=== PATIENT | male | born 1960 | race Two or more races ===

== ENCOUNTER 2024-08-16 10:43 | Outpatient (RCR) | payer OTHER, SELFPAY ==
[2024-07-30 13:41] LABS: Collection Type, Urine Voided; RBC,Urine 0 /hpf (0-3); Squamous Epithelial Cell,Urine 0 /hpf (0-5)
[2024-07-30 13:47] LABS: Basophils % (Auto) 0 % (0-2.5); Eosinophils # (Auto) 0.1 Thou/mm3 (0.0-0.5); Eosinophils % (Auto) 1 % (0-10); Hematocrit 36.3 % (41.0-53.0); Hemoglobin 12.6 g/dL (13.5-16.0); Immature Granulocytes % (Auto) 0 % (0-0); Immature Granulocytes Auto 0.02 Thou/mm3 (0.00-0.00); Lymphocytes # (Auto) 2.3 Thou/mm3 (1.0-4.8); Lymphocytes % (Auto) 27 % (10-50); Mean Corpuscular HGB Conc 34.7 g/dl (31.0-37.0); Mean Corpuscular Volume 86 fL (80-100); Monocytes % (Auto) 11 % (0-12); Neutrophils # (Auto) 5.2 Thou/mm3 (1.8-7.7); Neutrophils % (Auto) 60 % (37-80); Nucleated Red Blood Cell % 0 /100 WBC (0); Platelet Count 229 Thou/mm3 (140-440); RDW Standard Deviation 45.9 fL (35.1-43.9); White Blood Count 8.6 Thou/mm3 (3.8-10.6)
[2024-07-30 14:05] LABS: Carcinoembryonic Antigen 4.6 ng/mL (0.0-5.0)
[2024-07-30 14:09] LABS: Bilirubin,Urine Negative (Negative); Blood,Urine Negative (Negative); Clarity,Urine Turbid (Clear/Hazy); Color,Urine Lt-Yellow (Lt Yel-Yel); Glucose, Urine Negative (Negative); Ketones,Urine Negative (Negative); Leukocyte Esterase,Urine Negative (Negative); Nitrite,Urine Negative (Negative); Protein,Urine Negative (Neg - Trace); Specific Gravity,Urine 1.017 (1.001-1.035); Urobilinogen,Urine Negative mg/dL (0.0-1.0); WBC,Urine 1 /hpf (0-5)
[2024-07-30 14:14] LABS: Alanine Aminotransferase 16 U/L (10-49); Albumin, Serum 4.4 gm/dL (3.4-4.8); Albumin/Globulin Ratio 1.4 (1.2-2.2); Alkaline Phosphatase 79 U/L (46-116); Anion Gap 10 (7-16); Aspartate Amino Transferase 19 U/L (0-34); BUN/Creatinine Ratio 17 Ratio (12-20); Bilirubin,Total 0.6 mg/dL (0.3-1.2); Blood Urea Nitrogen 17 mg/dL (9-23); Calcium 9.6 mg/dL (8.3-10.6); Calcium (Corrected) 9.6 mg/dL (8.5-10.1); Carbon Dioxide 21.5 mMol/L (20.0-31.0); Chloride 106 mMol/L (98-107); Globulin 3.1 gm/dL (2.3-3.5); Glucose 127 mg/dL (74-106); Osmolality,Calculated 277 (275-295); Potassium 3.8 mMol/L (3.4-5.1); Sodium 137 mMol/L (136-145); Total Protein 7.5 gm/dL (5.7-8.2); eGFR > 60 See Note
[2024-07-30 14:16] LABS: Sperm,Urine Present
[2024-08-10 09:33] LABS: Collection Type, Urine Voided
[2024-08-10 09:35] LABS: Basophils % (Auto) 0 % (0-2.5); Eosinophils # (Auto) 0.1 Thou/mm3 (0.0-0.5); Eosinophils % (Auto) 1 % (0-10); Hematocrit 37.1 % (41.0-53.0); Hemoglobin 13.1 g/dL (13.5-16.0); Immature Granulocytes % (Auto) 1 % (0-0); Immature Granulocytes Auto 0.04 Thou/mm3 (0.00-0.00); Lymphocytes # (Auto) 2.3 Thou/mm3 (1.0-4.8); Lymphocytes % (Auto) 41 % (10-50); Mean Corpuscular HGB Conc 35.3 g/dl (31.0-37.0); Mean Corpuscular Hemoglobin 30.6 pg (25.0-35.0); Mean Corpuscular Volume 87 fL (80-100); Monocytes # (Auto) 0.8 Thou/mm3 (0.0-0.8); Monocytes % (Auto) 15 % (0-12); Neutrophils # (Auto) 2.3 Thou/mm3 (1.8-7.7); Neutrophils % (Auto) 41 % (37-80); Nucleated Red Blood Cell % 0 /100 WBC (0); Platelet Count 232 Thou/mm3 (140-440); RDW Standard Deviation 44.9 fL (35.1-43.9); Red Blood Count 4.28 Miln/mm3 (4.50-5.90); White Blood Count 5.6 Thou/mm3 (3.8-10.6)
[2024-08-10 09:37] LABS: Bilirubin,Urine Negative (Negative); Blood,Urine Negative (Negative); Clarity,Urine Clear (Clear/Hazy); Color,Urine Lt-Yellow (Lt Yel-Yel); Culture Indicated,Urine Not Indicated; Glucose, Urine Negative (Negative); Ketones,Urine Negative (Negative); Leukocyte Esterase,Urine Negative (Negative); Nitrite,Urine Negative (Negative); PH,Urine 5.5 (5.0-7.0); Protein,Urine Negative (Neg - Trace); RBC,Urine < 1 /hpf (0-3); Squamous Epithelial Cell,Urine < 1 /hpf (0-5); Urobilinogen,Urine Negative mg/dL (0.0-1.0); WBC,Urine 1 /hpf (0-5)
[2024-08-10 09:54] LABS: Alanine Aminotransferase 14 U/L (10-49); Albumin, Serum 4.5 gm/dL (3.4-4.8); Albumin/Globulin Ratio 1.5 (1.2-2.2); Alkaline Phosphatase 61 U/L (46-116); Anion Gap 7 (7-16); Aspartate Amino Transferase 21 U/L (0-34); BUN/Creatinine Ratio 14 Ratio (12-20); Bilirubin,Total 0.8 mg/dL (0.3-1.2); Blood Urea Nitrogen 13 mg/dL (9-23); Calcium 9.2 mg/dL (8.3-10.6); Calcium (Corrected) 9.2 mg/dL (8.5-10.1); Carbon Dioxide 20.8 mMol/L (20.0-31.0); Chloride 107 mMol/L (98-107); Creatinine (Component) 0.9 mg/dL (0.6-1.3); Glucose 109 mg/dL (74-106); Osmolality,Calculated 271 (275-295); Potassium 3.8 mMol/L (3.4-5.1); Sodium 135 mMol/L (136-145); Total Protein 7.5 gm/dL (5.7-8.2); eGFR > 60 See Note
[2024-08-10 09:56] LABS: Carcinoembryonic Antigen 4.8 ng/mL (0.0-5.0)
[2024-08-14 08:50] LABS: Collection Type, Urine Voided; Squamous Epithelial Cell,Urine 0 /hpf (0-5)
[2024-08-14 08:57] LABS: Bilirubin,Urine Negative (Negative); Blood,Urine Negative (Negative); Clarity,Urine Clear (Clear/Hazy); Color,Urine Lt-Yellow (Lt Yel-Yel); Glucose, Urine Negative (Negative); Ketones,Urine Negative (Negative); Leukocyte Esterase,Urine Negative (Negative); Nitrite,Urine Negative (Negative); PH,Urine 5.5 (5.0-7.0); Protein,Urine Negative (Neg - Trace); RBC,Urine < 1 /hpf (0-3); Urobilinogen,Urine Negative mg/dL (0.0-1.0); WBC,Urine 1 /hpf (0-5)
[2024-08-14 08:58] LABS: Basophils % (Auto) 0 % (0-2.5); Eosinophils # (Auto) 0.1 Thou/mm3 (0.0-0.5); Eosinophils % (Auto) 2 % (0-10); Hemoglobin 11.9 g/dL (13.5-16.0); Immature Granulocytes % (Auto) 0 % (0-0); Immature Granulocytes Auto 0.01 Thou/mm3 (0.00-0.00); Lymphocytes # (Auto) 1.8 Thou/mm3 (1.0-4.8); Lymphocytes % (Auto) 40 % (10-50); Mean Corpuscular Hemoglobin 30.4 pg (25.0-35.0); Mean Corpuscular Volume 87 fL (80-100); Monocytes # (Auto) 0.8 Thou/mm3 (0.0-0.8); Monocytes % (Auto) 18 % (0-12); Neutrophils # (Auto) 1.8 Thou/mm3 (1.8-7.7); Neutrophils % (Auto) 40 % (37-80); Nucleated Red Blood Cell % 0 /100 WBC (0); Platelet Count 148 Thou/mm3 (140-440); RDW Standard Deviation 48.1 fL (35.1-43.9); Red Blood Count 3.92 Miln/mm3 (4.50-5.90); White Blood Count 4.6 Thou/mm3 (3.8-10.6)
[2024-08-14 09:11] LABS: Alanine Aminotransferase 13 U/L (10-49); Albumin, Serum 4.2 gm/dL (3.4-4.8); Albumin/Globulin Ratio 1.6 (1.2-2.2); Alkaline Phosphatase 76 U/L (46-116); Anion Gap 8 (7-16); Aspartate Amino Transferase 18 U/L (0-34); BUN/Creatinine Ratio 16 Ratio (12-20); Bilirubin,Total 0.9 mg/dL (0.3-1.2); Blood Urea Nitrogen 14 mg/dL (9-23); Calcium 9.3 mg/dL (8.3-10.6); Calcium (Corrected) 9.3 mg/dL (8.5-10.1); Chloride 105 mMol/L (98-107); Creatinine (Component) 0.9 mg/dL (0.6-1.3); Globulin 2.7 gm/dL (2.3-3.5); Glucose 119 mg/dL (74-106); Osmolality,Calculated 273 (275-295); Sodium 136 mMol/L (136-145); Total Protein 6.9 gm/dL (5.7-8.2); eGFR > 60 See Note
[2024-08-14 09:23] LABS: Carcinoembryonic Antigen 3.9 ng/mL (0.0-5.0)
== END 2024-08-25 23:59 | disposition home or self-care (01) ==
LOC: SCTC 10:43
PROVIDERS: PCP Family Medicine; Referring Provider Family Medicine; Visit Provider Internal Medicine Hematology & Oncology
DX: Z51.11 Encounter for antineoplastic chemotherapy (principal); C18.7 Malignant neoplasm of sigmoid colon; C78.02 Secondary malignant neoplasm of left lung; C78.01 Secondary malignant neoplasm of right lung; Z90.49 Acquired absence of other specified parts of digestive tract; Z93.3 Colostomy status; K76.89 Other specified diseases of liver; D50.9 Iron deficiency anemia, unspecified
CPT/HCPCS: 36415; 36591; 80053; 81001; 82378; 85025; 96365; 96366; 96367; 96368; 96375; 96411; 96413; 96415; 96416; 96417; 99212; A4216; J0640; J1642; J2469; J2916; J2997; J7040; J9190; J9263; Q5126; A9270; G0463

== ENCOUNTER 2024-09-25 07:14 | Outpatient (RCR) | payer OTHER, SELFPAY ==
[2024-08-27 16:30] LABS: Collection Type, Urine Voided; Squamous Epithelial Cell,Urine 0 /hpf (0-5)
[2024-08-27 16:32] LABS: Basophils % (Auto) 0 % (0-2.5); Eosinophils # (Auto) 0.1 Thou/mm3 (0.0-0.5); Eosinophils % (Auto) 1 % (0-10); Hematocrit 34.2 % (41.0-53.0); Immature Granulocytes % (Auto) 0 % (0-0); Immature Granulocytes Auto 0.01 Thou/mm3 (0.00-0.00); Lymphocytes # (Auto) 2.2 Thou/mm3 (1.0-4.8); Lymphocytes % (Auto) 41 % (10-50); Mean Corpuscular HGB Conc 35.1 g/dl (31.0-37.0); Mean Corpuscular Hemoglobin 31.4 pg (25.0-35.0); Mean Corpuscular Volume 90 fL (80-100); Monocytes # (Auto) 0.7 Thou/mm3 (0.0-0.8); Monocytes % (Auto) 13 % (0-12); Neutrophils # (Auto) 2.4 Thou/mm3 (1.8-7.7); Neutrophils % (Auto) 44 % (37-80); Nucleated Red Blood Cell % 0 /100 WBC (0); Platelet Count 188 Thou/mm3 (140-440); RDW Standard Deviation 49.8 fL (35.1-43.9); Red Blood Count 3.82 Miln/mm3 (4.50-5.90); White Blood Count 5.4 Thou/mm3 (3.8-10.6)
[2024-08-27 16:45] LABS: Bilirubin,Urine Negative (Negative); Blood,Urine Negative (Negative); Clarity,Urine Clear (Clear/Hazy); Color,Urine Lt-Yellow (Lt Yel-Yel); Glucose, Urine Negative (Negative); Ketones,Urine Negative (Negative); Leukocyte Esterase,Urine Negative (Negative); Nitrite,Urine Negative (Negative); PH,Urine 5.5 (5.0-7.0); Protein,Urine Negative (Neg - Trace); RBC,Urine < 1 /hpf (0-3); Specific Gravity,Urine 1.016 (1.001-1.035); Urobilinogen,Urine Negative mg/dL (0.0-1.0); WBC,Urine < 1 /hpf (0-5)
[2024-08-27 16:59] LABS: Alanine Aminotransferase 10 U/L (10-49); Albumin, Serum 4.5 gm/dL (3.4-4.8); Albumin/Globulin Ratio 1.6 (1.2-2.2); Alkaline Phosphatase 68 U/L (46-116); Anion Gap 12 (7-16); Aspartate Amino Transferase 20 U/L (0-34); BUN/Creatinine Ratio 18 Ratio (12-20); Bilirubin,Total 0.9 mg/dL (0.3-1.2); Blood Urea Nitrogen 21 mg/dL (9-23); Calcium 9.5 mg/dL (8.3-10.6); Calcium (Corrected) 9.5 mg/dL (8.5-10.1); Carbon Dioxide 21.7 mMol/L (20.0-31.0); Carcinoembryonic Antigen 2.5 ng/mL (0.0-5.0); Chloride 103 mMol/L (98-107); Creatinine (Component) 1.2 mg/dL (0.6-1.3); Globulin 2.8 gm/dL (2.3-3.5); Glucose 94 mg/dL (74-106); Osmolality,Calculated 276 (275-295); Potassium 3.8 mMol/L (3.4-5.1); Sodium 137 mMol/L (136-145); Total Protein 7.3 gm/dL (5.7-8.2); eGFR > 60 See Note
[2024-09-10 13:26] LABS: Collection Type, Urine Voided; RBC,Urine 0 /hpf (0-3); Squamous Epithelial Cell,Urine 0 /hpf (0-5)
[2024-09-10 13:32] LABS: Basophils % (Auto) 0 % (0-2.5); Eosinophils # (Auto) 0.1 Thou/mm3 (0.0-0.5); Eosinophils % (Auto) 1 % (0-10); Hematocrit 35.3 % (41.0-53.0); Hemoglobin 12.5 g/dL (13.5-16.0); Immature Granulocytes % (Auto) 0 % (0-0); Immature Granulocytes Auto 0.02 Thou/mm3 (0.00-0.00); Lymphocytes # (Auto) 1.9 Thou/mm3 (1.0-4.8); Lymphocytes % (Auto) 36 % (10-50); Mean Corpuscular HGB Conc 35.4 g/dl (31.0-37.0); Mean Corpuscular Hemoglobin 32.1 pg (25.0-35.0); Mean Corpuscular Volume 91 fL (80-100); Monocytes # (Auto) 0.7 Thou/mm3 (0.0-0.8); Monocytes % (Auto) 14 % (0-12); Neutrophils # (Auto) 2.5 Thou/mm3 (1.8-7.7); Neutrophils % (Auto) 48 % (37-80); Nucleated Red Blood Cell % 0 /100 WBC (0); Platelet Count 164 Thou/mm3 (140-440); RDW Standard Deviation 51.8 fL (35.1-43.9); White Blood Count 5.2 Thou/mm3 (3.8-10.6)
[2024-09-10 13:48] LABS: Alanine Aminotransferase 18 U/L (10-49); Albumin, Serum 4.2 gm/dL (3.4-4.8); Albumin/Globulin Ratio 1.4 (1.2-2.2); Alkaline Phosphatase 71 U/L (46-116); Anion Gap 11 (7-16); Aspartate Amino Transferase 23 U/L (0-34); BUN/Creatinine Ratio 15 Ratio (12-20); Bilirubin,Total 0.8 mg/dL (0.3-1.2); Blood Urea Nitrogen 15 mg/dL (9-23); Calcium 9.9 mg/dL (8.3-10.6); Calcium (Corrected) 9.9 mg/dL (8.5-10.1); Carbon Dioxide 21.9 mMol/L (20.0-31.0); Chloride 107 mMol/L (98-107); Glucose 108 mg/dL (74-106); Osmolality,Calculated 281 (275-295); Potassium 3.6 mMol/L (3.4-5.1); Sodium 140 mMol/L (136-145); Total Protein 7.2 gm/dL (5.7-8.2); eGFR > 60 See Note
[2024-09-10 13:50] LABS: Carcinoembryonic Antigen 2.3 ng/mL (0.0-5.0)
[2024-09-10 13:55] LABS: Bilirubin,Urine Negative (Negative); Blood,Urine Negative (Negative); Clarity,Urine Clear (Clear/Hazy); Color,Urine Lt-Yellow (Lt Yel-Yel); Glucose, Urine Negative (Negative); Ketones,Urine Negative (Negative); Leukocyte Esterase,Urine Negative (Negative); Nitrite,Urine Negative (Negative); PH,Urine 5.5 (5.0-7.0); Protein,Urine Negative (Neg - Trace); Specific Gravity,Urine 1.012 (1.001-1.035); Urobilinogen,Urine Negative mg/dL (0.0-1.0); WBC,Urine < 1 /hpf (0-5)
[2024-09-24 08:47] LABS: Collection Type, Urine Voided; RBC,Urine 0 /hpf (0-3); Squamous Epithelial Cell,Urine 0 /hpf (0-5)
[2024-09-24 09:08] LABS: Basophils % (Auto) 0 % (0-2.5); Eosinophils # (Auto) 0.1 Thou/mm3 (0.0-0.5); Eosinophils % (Auto) 2 % (0-10); Hemoglobin 13.2 g/dL (13.5-16.0); Immature Granulocytes % (Auto) 0 % (0-0); Immature Granulocytes Auto 0.01 Thou/mm3 (0.00-0.00); Lymphocytes # (Auto) 1.6 Thou/mm3 (1.0-4.8); Lymphocytes % (Auto) 38 % (10-50); Mean Corpuscular HGB Conc 35.7 g/dl (31.0-37.0); Mean Corpuscular Hemoglobin 32.5 pg (25.0-35.0); Mean Corpuscular Volume 91 fL (80-100); Monocytes # (Auto) 0.6 Thou/mm3 (0.0-0.8); Monocytes % (Auto) 14 % (0-12); Neutrophils # (Auto) 1.9 Thou/mm3 (1.8-7.7); Neutrophils % (Auto) 46 % (37-80); Nucleated Red Blood Cell % 0 /100 WBC (0); Platelet Count 208 Thou/mm3 (140-440); RDW Standard Deviation 51.6 fL (35.1-43.9); Red Blood Count 4.06 Miln/mm3 (4.50-5.90); White Blood Count 4.1 Thou/mm3 (3.8-10.6)
[2024-09-24 09:15] LABS: Carcinoembryonic Antigen 1.7 ng/mL (0.0-5.0)
[2024-09-24 09:24] LABS: Alanine Aminotransferase 16 U/L (10-49); Albumin, Serum 4.6 gm/dL (3.4-4.8); Albumin/Globulin Ratio 1.6 (1.2-2.2); Alkaline Phosphatase 64 U/L (46-116); Anion Gap 10 (7-16); Aspartate Amino Transferase 22 U/L (0-34); BUN/Creatinine Ratio 12 Ratio (12-20); Bilirubin,Total 0.9 mg/dL (0.3-1.2); Blood Urea Nitrogen 12 mg/dL (9-23); Calcium 9.7 mg/dL (8.3-10.6); Calcium (Corrected) 9.7 mg/dL (8.5-10.1); Carbon Dioxide 24.5 mMol/L (20.0-31.0); Chloride 105 mMol/L (98-107); Globulin 2.9 gm/dL (2.3-3.5); Glucose 139 mg/dL (74-106); Osmolality,Calculated 279 (275-295); Sodium 139 mMol/L (136-145); Total Protein 7.5 gm/dL (5.7-8.2); eGFR > 60 See Note
[2024-09-24 09:25] LABS: Bilirubin,Urine Negative (Negative); Blood,Urine Negative (Negative); Clarity,Urine Clear (Clear/Hazy); Color,Urine Lt-Yellow (Lt Yel-Yel); Culture Indicated,Urine Not Indicated; Glucose, Urine Negative (Negative); Ketones,Urine Negative (Negative); Leukocyte Esterase,Urine Negative (Negative); Nitrite,Urine Negative (Negative); PH,Urine 5.5 (5.0-7.0); Protein,Urine Negative (Neg - Trace); Specific Gravity,Urine 1.011 (1.001-1.035); Urobilinogen,Urine Negative mg/dL (0.0-1.0); WBC,Urine < 1 /hpf (0-5)
== END 2024-09-25 23:59 | disposition home or self-care (01) ==
LOC: SCTC 07:14
PROVIDERS: PCP Family Medicine; Referring Provider Family Medicine; Visit Provider Internal Medicine Hematology & Oncology
DX: Z51.11 Encounter for antineoplastic chemotherapy (principal); C19 Malignant neoplasm of rectosigmoid junction; C78.02 Secondary malignant neoplasm of left lung; C78.01 Secondary malignant neoplasm of right lung; D50.9 Iron deficiency anemia, unspecified; Z90.49 Acquired absence of other specified parts of digestive tract
CPT/HCPCS: 80053; 81001; 82378; 85025; 96365; 96366; 96367; 96368; 96375; 96411; 96413; 96415; 96416; 96417; A4216; J0640; J1642; J2469; J2916; J2919; J2997; J3490; J7060; J9190; J9263; Q5126; A9270

== ENCOUNTER 2024-10-19 07:19 | Outpatient (RCR) | payer OTHER, SELFPAY ==
[2024-10-17 07:52] LABS: Collection Type, Urine Voided; Squamous Epithelial Cell,Urine 0 /hpf (0-5)
[2024-10-17 08:10] LABS: Basophils % (Auto) 0 % (0-2.5); Eosinophils # (Auto) 0.1 Thou/mm3 (0.0-0.5); Eosinophils % (Auto) 2 % (0-10); Hematocrit 35.6 % (41.0-53.0); Hemoglobin 12.9 g/dL (13.5-16.0); Immature Granulocytes % (Auto) 1 % (0-0); Immature Granulocytes Auto 0.06 Thou/mm3 (0.00-0.00); Lymphocytes # (Auto) 1.9 Thou/mm3 (1.0-4.8); Lymphocytes % (Auto) 36 % (10-50); Mean Corpuscular HGB Conc 36.2 g/dl (31.0-37.0); Mean Corpuscular Hemoglobin 33.2 pg (25.0-35.0); Mean Corpuscular Volume 92 fL (80-100); Monocytes # (Auto) 0.8 Thou/mm3 (0.0-0.8); Monocytes % (Auto) 14 % (0-12); Neutrophils # (Auto) 2.5 Thou/mm3 (1.8-7.7); Neutrophils % (Auto) 47 % (37-80); Nucleated Red Blood Cell % 0 /100 WBC (0); Platelet Count 257 Thou/mm3 (140-440); RDW Standard Deviation 46.1 fL (35.1-43.9); Red Blood Count 3.88 Miln/mm3 (4.50-5.90); White Blood Count 5.3 Thou/mm3 (3.8-10.6)
[2024-10-17 08:28] LABS: Alanine Aminotransferase 12 U/L (10-49); Albumin, Serum 4.4 gm/dL (3.4-4.8); Albumin/Globulin Ratio 1.5 (1.2-2.2); Alkaline Phosphatase 81 U/L (46-116); Anion Gap 10 (7-16); Aspartate Amino Transferase 13 U/L (0-34); BUN/Creatinine Ratio 18 Ratio (12-20); Bilirubin,Total 0.6 mg/dL (0.3-1.2); Blood Urea Nitrogen 14 mg/dL (9-23); Calcium 9.9 mg/dL (8.3-10.6); Calcium (Corrected) 9.9 mg/dL (8.5-10.1); Carbon Dioxide 22.8 mMol/L (20.0-31.0); Chloride 104 mMol/L (98-107); Creatinine (Component) 0.8 mg/dL (0.6-1.3); Glucose 143 mg/dL (74-106); Osmolality,Calculated 276 (275-295); Potassium 3.8 mMol/L (3.4-5.1); Sodium 137 mMol/L (136-145); Total Protein 7.4 gm/dL (5.7-8.2); eGFR > 60 See Note
[2024-10-17 08:29] LABS: Bilirubin,Urine Negative (Negative); Blood,Urine Negative (Negative); Clarity,Urine Clear (Clear/Hazy); Color,Urine Lt-Yellow (Lt Yel-Yel); Glucose, Urine Negative (Negative); Ketones,Urine Negative (Negative); Leukocyte Esterase,Urine Negative (Negative); Nitrite,Urine Negative (Negative); PH,Urine 5.5 (5.0-7.0); Protein,Urine Negative (Neg - Trace); RBC,Urine 1 /hpf (0-3); Specific Gravity,Urine 1.017 (1.001-1.035); Urobilinogen,Urine Negative mg/dL (0.0-1.0); WBC,Urine 1 /hpf (0-5)
[2024-10-17 08:49] LABS: Carcinoembryonic Antigen 1.5 ng/mL (0.0-5.0)
--- NOTE | 2024-10-17 10:59 | CTCFLWUP_ITS ---
Patient: CARLOS STODDARD : 1960 Page 2 of 2 FOLLOW UP NOTE DATE OF SERVICE: 10/16/2024 NAME: CARLOS STODDARD ACCOUNT: [id number] : 1960 AGE: 64 INTERVAL HISTORY: Patient was having dizziness and had a fall at home. Patient says that he took [place] and did not eat .. Patient was also not drinking enough fluids. Patient's was at work. Patient called 911 and was evaluated at the hospital. Patient is now doing better and want to restart his treatment. 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 MMR proficient Liver lesions CT chest with contrast (03/05/2024) showed multiple small pulmonary nodules suspicious f or metastatic disease. Too small to biopsy. S/p sigmoid colectomy and end colostomy (03/01/2024). S/p colonoscopy biopsy on 02/13/2024 DATE OF DIAGNOSIS: 02/12/2022 STAGE/TNM: Stage III invasive adenocarcinoma of the rectosigmoid TREATMENT HISTORY: Care?Plan Start?Date Cycle Day Intent mFOLFOX-6?+?Bevacizumab?5?mg/kg 04/17/2024 1 14 Palliative FERRlecit?he 04/16/2024 1 7 Palliative HISTORY OF PRESENT ILLNESS: Carlos Stoddard is a 63-year-old ENG speaking male with history of intermittent constipatio n as well as pain in the suprapubic region for the last 8 to 12 weeks and occasional rectal bleeding for the last 8-12 I will see him back in the clinic in 2 weeks. 01/17/2024: Mr. Stoddard went to emergency room because of persistent abdominal pain. A CT scan of the a bdomen and pelvis with IV contrast was done01/17/2024: Hemoglobin 13.4, MCV 86, WBC 12.4, ANC 8.9, figueroa telets 483,000. 02/10/2024: CEA 29.4. 02/13/2024: Colonoscopy showed rectosigmoid mass which on biopsy proven as an invasive adenocarcinoma well-differentiated. OTHER MEDICAL HISTORY/CONDITIONS: Invasive adenocarcinoma redtosigmoid colon - 02/13/24 HPylori positive - 02/13/24 Esophogeal ulcers Gastritis BPH Alcohol abuse Left knee surgery - 30 yrs ago Tonsillectomy - age 7 ?Clone Other Med Hx? FAMILY HISTORY: Sibling: Brother - Kaposi's Sarcoma-dx age 22; Brother- liver - dx 67 ?Clone Family Hx? 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 Tobacco?Use:?Denies ETOH Use:?Quit 3 months ago - 12pk / daily and 5th whiskey x 40 yrs Drug?Note:?Denies Social?History?Note:?Lives?with? ?Clone Social Hx? MEDICATIONS: 1. docusate sodium - 100 mg 1 tab As directed 2. hydrocodone-acetaminophen - 5-325 mg 1 tab every 6 hours for 30 Days 3. losartan - 25 mg 1 tab Daily 4. omeprazole - 40 mg 1 Capsule Daily 5. tamsulosin - 0.4 mg 1 Capsule Daily?Palabra Meds? Medications Last Reconciled by Aleyda Clark MD on 10/16/2024 ALLERGIES: Morphine sulfate REVIEW OF SYSTEMS: A complete 14-point review of systems was performed and is negative except as noted in interval histo ry. PHYSICAL EXAMINATION: VITAL SIGNS: Temperature?97.3, B/P?156/101, Oxygen?Saturation?97% Weight?173?lbs (Change?since? 5:?-1.2?lbs) PAIN: 0 - No pain ECOG Performance Status: 0 - Asymptomatic and fully active GENERAL APPEARANCE: Appears well, in no apparent distress, appropriately interactive. HEENT: Normocephalic, no temporal wasting, normal conjunctiva, no scleral icterus, normal hearing, li ps without lesions, neck normal range of motion. CARDIOVASCULAR: Not assessed. PULMONARY: Normal respiratory effort, no respiratory distress or use of accessory muscles, speaking i n full sentences, no tachypnea. EXTREMITIES: No pedal edema or cyanosis. SKIN: Normal skin appearance. NEUROLOGIC: Alert and oriented x4. PSHYCHIATRIC: Appropriate affect, mood normal, behavior normal, intact thought and speech. LABORATORY DATA: I have personally reviewed and interpreted each of the patient?s relevant lab tests, abnormal finding s are below: Date 10/17/24 ??GLUCOSE,RANDOM?(mg/dL) 143?H ??BLOOD?UREA?NITROGEN?(mg/dL) 14 ??CREATININE?(mg/dL) 0.80 ??SODIUM?(mmol/L) 137 ??POTASSIUM?(mmol/L) 3.8 ??CHLORIDE?(mmol/L) 104 ??CrCl?(CandG)?(ml/min) 102.91 ??AST/SGOT?(Unit/L) 13 ??ALT/SGPT?(Unit/L) 12 ??ALKALINE?PHOSPHATASE?(Unit/L) 81 ??BILIRUBIN,?TOTAL?(mg/dL) 0.6 ??PROTEIN?TOTAL?(gm/dl) 7.4 ??ALBUMIN,?SERUM?(gm/dl) 4.4 ??GLOBULIN?(gm/dl) 3.0 ??ALBUMIN/GLOBULIN?RATIO 1.5 ??CALCIUM,?SERUM?(mg/dL) 9.9 ??CALCIUM?SERUM?(CORRECTED)?(mg/dL) 9.9 ASSESSMENT/PLAN: #1 most likely stage IV, MMR proficient, sigmoid colon adenocarcinoma with pulmonary metastatic dise ase. MMR proficient. S/p sigmoid colectomy and end colostomy. CT scan showed multiple pulmonary nodules. Nodules are very small so cannot be biopsied Patient is be ing treated with presumed stage IV cancer and bevacizumab was added for maximum benefit July 2024 CT scan concerning for liver lesion. Lesion is very small I will repeat scan in 2 months c CEA has b een downtrending now less than 5 olonoscopy was done on 02/13/2024 Continue FOLFOX with [facility] CT scan in 2 months #2 iron deficiency anemia Hemoglobin stable will check labs again to see if patient is stil l deficient Patient's CEA and other labs reviewed Patient have 2 remaining chemotherapies will continue Will follow-up on the CT scan which is already ordered CBC CMP CEA RETURN TO CLINIC: 4 weeks with scan results BILLING AND COMPLIANCE: I reviewed external records from providers outside my specialty as summarized above. I spent a total of 50 minutes on this patient?s care on the day of their visit excluding time spent related to any bi lled procedures. This time includes time spent with the patient as well as time spent documenting in the medical record, reviewing patients records and tests, obtaining history, placing orders, communi cating with other healthcare professionals, counseling the patient, family or caregiver, and/or care coordination for the diagnoses above. Electronically Signed by: Von Boss MD T: 10:57 AM CC: PCP: Matthew Dave Referring: Matthew Dave This document was completed utilizing speech recognition software. Grammatical errors, random word in sertions, pronoun errors, and incomplete sentences are an occasional consequence of this system due t o software limitations, ambient noise, and hardware issues. Any formal questions or concerns about th e content, text or information contained within the body of this dictation should be directly address ed to the provider for clarification.
== END 2024-10-26 23:59 | disposition home or self-care (01) ==
LOC: SCTC 07:19
PROVIDERS: PCP Family Medicine; Referring Provider Family Medicine; Visit Provider Internal Medicine Hematology & Oncology
DX: Z51.11 Encounter for antineoplastic chemotherapy (principal); C18.7 Malignant neoplasm of sigmoid colon; C78.00 Secondary malignant neoplasm of unspecified lung; Z90.49 Acquired absence of other specified parts of digestive tract
CPT/HCPCS: 80053; 81001; 82378; 85025; 96365; 96366; 96367; 96368; 96375; 96411; 96413; 96415; 96416; 96417; 99212; A4216; J0640; J1642; J2469; J2916; J2919; J3490; J7040; J7050; J9190; J9263; Q5126; A9270; G0463

== ENCOUNTER → 2024-10-22 | Outpatient (CLI) | payer OTHER, SELFPAY ==
--- NOTE | 2024-10-22 14:00 | XR_ITS ---
Examination: CT chest with intravenous contrast CT abdomen with intravenous contrast CT pelvis with intravenous contrast 2-D coronal and sagittal reconstructions Time of exam: October 22, 2024 1538 hours Comparison August 07, 2024 INDICATIONS: Diagnosis malignant neoplasm of the colon, restaging, multiple bilateral pulmonary nodules, the largest 8 mm in the left upper lobe, 20 x 22 mm anterior right lobe liver lesion on CT examination August 07, 2024 CTDI: vol (mGy) : 7.39 DLP: (mGycm): 569 Technique: Multiple axial images of the chest, abdomen and pelvis with intravenous contrast, 3.0 mm slice thickness. Images obtained post intravenous injection Isovue 370 60 cc. 2-D sagittal and coronal reconstructions. Low dose protocols were performed. One or more of the following dose reduction techniques were used; automated exposure control, adjustment of the mA and/or KV according to patient size, use of iterative reconstruction technique. Findings: Multiple left thyroid nodules again noted No thoracic aortic aneurysm dilatation Pulmonary artery segments are not enlarged No paratracheal tracheobronchial or bronchopulmonary adenopathy Stable bilateral pulmonary nodules No interval pneumonia or pulmonary edema Stable 29 mm right lobe liver lesion Mildly distended gallbladder Spleen is not enlarged No pancreatic or adrenal mass No hydronephrosis Left ileostomy No bowel obstruction No abdominal or pelvic lymphadenopathy Urinary bladder intact Transverse prostate dimension 4.3 cm Advanced degenerative disc disease L5-S1 IMPRESSION: Multiple left thyroid nodules No significant change in bilateral subcentimeter pulmonary nodules No interval pneumonia or pulmonary edema Stable 29 mm right lobe liver lesion, no new liver lesions
== END | disposition home or self-care (01) ==
PROVIDERS: PCP Family Medicine; Referring Provider Internal Medicine Hematology & Oncology; Visit Provider Internal Medicine Hematology & Oncology
DX: E04.2 Nontoxic multinodular goiter (principal); R91.8 Other nonspecific abnormal finding of lung field; K76.9 Liver disease, unspecified
CPT/HCPCS: 71260; 74177; A4649; J0694; J1100; J1885; J2250; J2405; J2704; J3010; J3490; Q9967

== ENCOUNTER → 2024-10-30 | Outpatient (CLI) | payer OTHER, SELFPAY ==
[2024-10-30 09:45] LABS: Glucose Estimated Average 114 mg/dL (80-131); Hemoglobin A1C 5.6 % Hgb (4.8-6.0)
== END | disposition home or self-care (01) ==
LOC: COPL 08:47
PROVIDERS: PCP Family Medicine; Referring Provider Family Medicine; Visit Provider Family Medicine
DX: E11.65 Type 2 diabetes mellitus with hyperglycemia (principal)
CPT/HCPCS: 36415; 83036

== ENCOUNTER 2024-11-19 08:49 | Outpatient (RCR) | payer OTHER, MEDICARE, SELFPAY ==
[2024-10-31 07:39] LABS: Collection Type, Urine Voided; Squamous Epithelial Cell,Urine 0 /hpf (0-5)
[2024-10-31 07:44] LABS: Basophils % (Auto) 0 % (0-2.5); Bilirubin,Urine Negative (Negative); Blood,Urine Negative (Negative); Clarity,Urine Clear (Clear/Hazy); Color,Urine Lt-Yellow (Lt Yel-Yel); Eosinophils # (Auto) 0.1 Thou/mm3 (0.0-0.5); Eosinophils % (Auto) 1 % (0-10); Glucose, Urine Negative (Negative); Hemoglobin 12.8 g/dL (13.5-16.0); Immature Granulocytes % (Auto) 0 % (0-0); Immature Granulocytes Auto 0.02 Thou/mm3 (0.00-0.00); Ketones,Urine Negative (Negative); Leukocyte Esterase,Urine Negative (Negative); Lymphocytes % (Auto) 38 % (10-50); Mean Corpuscular HGB Conc 35.6 g/dl (31.0-37.0); Mean Corpuscular Hemoglobin 32.8 pg (25.0-35.0); Mean Corpuscular Volume 92 fL (80-100); Monocytes # (Auto) 0.9 Thou/mm3 (0.0-0.8); Monocytes % (Auto) 17 % (0-12); Neutrophils # (Auto) 2.3 Thou/mm3 (1.8-7.7); Neutrophils % (Auto) 43 % (37-80); Nitrite,Urine Negative (Negative); Nucleated Red Blood Cell % 0 /100 WBC (0); Platelet Count 194 Thou/mm3 (140-440); Protein,Urine Negative (Neg - Trace); RBC,Urine < 1 /hpf (0-3); RDW Standard Deviation 45.8 fL (35.1-43.9); Specific Gravity,Urine 1.019 (1.001-1.035); Urobilinogen,Urine Negative mg/dL (0.0-1.0); WBC,Urine < 1 /hpf (0-5); White Blood Count 5.4 Thou/mm3 (3.8-10.6)
[2024-10-31 08:03] LABS: Alanine Aminotransferase 15 U/L (10-49); Albumin, Serum 4.2 gm/dL (3.4-4.8); Albumin/Globulin Ratio 1.4 (1.2-2.2); Alkaline Phosphatase 76 U/L (46-116); Anion Gap 9 (7-16); Aspartate Amino Transferase 14 U/L (0-34); BUN/Creatinine Ratio 17 Ratio (12-20); Bilirubin,Total 0.9 mg/dL (0.3-1.2); Blood Urea Nitrogen 15 mg/dL (9-23); Calcium 9.1 mg/dL (8.3-10.6); Calcium (Corrected) 9.1 mg/dL (8.5-10.1); Chloride 108 mMol/L (98-107); Creatinine (Component) 0.9 mg/dL (0.6-1.3); Globulin 2.9 gm/dL (2.3-3.5); Glucose 115 mg/dL (74-106); Osmolality,Calculated 277 (275-295); Potassium 3.9 mMol/L (3.4-5.1); Sodium 138 mMol/L (136-145); Total Protein 7.1 gm/dL (5.7-8.2); eGFR > 60 See Note
[2024-10-31 15:55] LABS: Carcinoembryonic Antigen 1.1 ng/mL (0.0-5.0)
--- NOTE | 2024-11-25 15:38 | CTCFLWUP_ITS ---
Patient: CARLOS STODDARD : 1960 Page 4 of 5 FOLLOW UP NOTE DATE OF SERVICE: 11/08/2024 NAME: CARLOS STODDARD ACCOUNT: [id number] : 1960 AGE: 64 INTERVAL HISTORY: Patient was having dizziness and had a fall at home. Patient says that he took [place] and did not eat.. Patient was also not drinking enough fluids. Patient's was at work. Patient called 911 and was evaluated at the hospital. Patient is now doing better and want to restart his treatment. ONCOLOGY HISTORY:?[facility] Hx? 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 MMR proficient Liver lesions CT chest with contrast (03/05/2024) showed multiple small pulmonary nodules suspicious for metastatic disease. Too small to biopsy. S/p sigmoid colectomy and end colostomy (03/01/2024). S/p colonoscopy biopsy on 02/13/2024 DATE OF DIAGNOSIS: 02/12/2022 STAGE/TNM: Stage III invasive adenocarcinoma of the rectosigmoid TREATMENT HISTORY: Care?Plan Start?Date Cycle Day Intent mFOLFOX-6?+?Bevacizumab?5?mg/kg 04/17/2024 1 14 Palliative FERRlecit?he 04/16/2024 1 7 Palliative HISTORY OF PRESENT ILLNESS: Carlos Stoddard is a 64-year-old ENG speaking male with history of intermittent constipation as well as pain in the suprapubic region for the last 8 to 12 weeks and occasional rectal bleeding for the last 8-12 I will see him back in the clinic in 2 weeks. 01/17/2024: Mr. Stoddard went to emergency room because of persistent abdominal pain. A CT scan of the abdomen and pelvis with IV contrast was done01/17/2024: Hemoglobin 13.4, MCV 86, WBC 12.4, ANC 8.9, platelets 483,000. 02/10/2024: CEA 29.4. 02/13/2024: Colonoscopy showed rectosigmoid mass which on biopsy proven as an invasive adenocarcinoma well-differentiated. OTHER MEDICAL HISTORY/CONDITIONS: Invasive adenocarcinoma redtosigmoid colon - 02/13/24 HPylori positive - 02/13/24 Esophogeal ulcers Gastritis BPH Alcohol abuse Left knee surgery - 30 yrs ago Tonsillectomy - age 7 ?Clone Other Med Hx? FAMILY HISTORY: Sibling: Brother - Kaposi's Sarcoma-dx age 22; Brother- liver - dx 67 ?Clone Family Hx? 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 Tobacco?Use:?Denies ETOH Use:?Quit 3 months ago - 12pk / daily and 5th whiskey x 40 yrs Drug?Note:?Denies Social?History?Note:?Lives?with? ?[facility]one Social Hx? MEDICATIONS: 1. docusate sodium - 100 mg 1 tab As directed 2. hydrocodone-acetaminophen - 5-325 mg 1 tab every 6 hours for 30 Days 3. losartan - 25 mg 1 tab Daily 4. omeprazole - 40 mg 1 Capsule Daily 5. ondansetron - 8 mg 1 tab 1 tab every 8 hrs as needed for nausea 6. tamsulosin - 0.4 mg 1 Capsule Daily?Palabra Meds? Medications Last Reconciled by Sheila Beck MA on 11/08/2024 ALLERGIES: Morphine sulfate REVIEW OF SYSTEMS: A complete 14-point review of systems was performed and is negative except as noted in interval history. PHYSICAL EXAMINATION:?[facility] PE? VITAL SIGNS: Temperature?98, B/P?176/120, Oxygen?Saturation?98% Weight?171.5?lbs (Change?since?11/02/24:?-0.5?lbs) PAIN: 0 - No pain GENERAL APPEARANCE: Appears well, in no apparent distress, appropriately interactive. HEENT: Normocephalic, no temporal wasting, normal conjunctiva, no scleral icterus, normal hearing, lips without lesions, neck normal range of motion. CARDIOVASCULAR: Not assessed. PULMONARY: Normal respiratory effort, no respiratory distress or use of accessory muscles, speaking in full sentences, no tachypnea. EXTREMITIES: No pedal edema or cyanosis. SKIN: Normal skin appearance. NEUROLOGIC: Alert and oriented x4. PSHYCHIATRIC: Appropriate affect, mood normal, behavior normal, intact thought and speech. LABORATORY DATA: I have personally reviewed and interpreted each of the patient?s relevant lab tests, abnormal findings are below: Date 10/31/24 ??GLUCOSE,RANDOM?(mg/dL) 115?H ??BLOOD?UREA?NITROGEN?(mg/dL) 15 ??CREATININE?(mg/dL) 0.90 ??SODIUM?(mmol/L) 138 ??POTASSIUM?(mmol/L) 3.9 ??CHLORIDE?(mmol/L) 108?H ??CrCl?(CandG)?(ml/min) 90.44 ??AST/SGOT?(Unit/L) 14 ??ALT/SGPT?(Unit/L) 15 ??ALKALINE?PHOSPHATASE?(Unit/L) 76 ??BILIRUBIN,?TOTAL?(mg/dL) 0.9 ??PROTEIN?TOTAL?(gm/dl) 7.1 ??ALBUMIN,?SERUM?(gm/dl) 4.2 ??GLOBULIN?(gm/dl) 2.9 ??ALBUMIN/GLOBULIN?RATIO 1.4 ??CALCIUM,?SERUM?(mg/dL) 9.1 ??CALCIUM?SERUM?(CORRECTED)?(mg/dL) 9.1 ASSESSMENT/PLAN:?Kayla Boss Assessment/Plan? #1 most likely stage IV, MMR proficient, sigmoid colon adenocarcinoma with pulmonary metastatic disease. MMR proficient. S/p sigmoid colectomy and end colostomy. CT scan showed multiple pulmonary nodules. Nodules are very small so cannot be biopsied Patient is being treated with presumed stage IV cancer and bevacizumab was added for maximum benefit July 2024 CT scan concerning for liver lesion. Lesion is very small I will repeat scan in 2 months c CEA has been downtrending now less than 5 olonoscopy was done on 02/13/2024 Continue FOLFOX with [facility] CT scan in 2 months #2 iron deficiency anemia Hemoglobin stable will check labs again to see if patient is still deficient Patient's CEA and other labs reviewed Patient have 2 remaining chemotherapies will continue Will follow-up on the CT scan which is already ordered CBC CMP CEA RETURN TO CLINIC: BILLING AND COMPLIANCE: I reviewed external records from providers outside my specialty as summarized above. I spent a total of 50 minutes on this patient?s care on the day of their visit excluding time spent related to any billed procedures. This time includes time spent with the patient as well as time spent documenting in the medical record, reviewing patients records and tests, obtaining history, placing orders, communicating with other healthcare professionals, counseling the patient, family or caregiver, and/or care coordination for the diagnoses above. Electronically Signed by: Von Boss MD T: 3:36 PM CC: PCP: Matthew Dave Referring: Matthew Dave This document was completed utilizing speech recognition software. Grammatical errors, random word insertions, pronoun errors, and incomplete sentences are an occasional consequence of this system due to software limitations, ambient noise, and hardware issues. Any formal questions or concerns about the content, text or information contained within the body of this dictation should be directly addressed to the provider for clarification.
== END 2024-11-23 23:59 | disposition home or self-care (01) ==
LOC: SCTC 08:49
PROVIDERS: PCP Family Medicine; Referring Provider Family Medicine; Visit Provider Internal Medicine Hematology & Oncology
DX: Z51.11 Encounter for antineoplastic chemotherapy (principal); C18.7 Malignant neoplasm of sigmoid colon; C78.00 Secondary malignant neoplasm of unspecified lung; Z90.49 Acquired absence of other specified parts of digestive tract; D50.9 Iron deficiency anemia, unspecified
CPT/HCPCS: 36591; 80053; 81001; 82378; 85025; 96365; 96366; 96367; 96368; 96375; 96411; 96413; 96415; 96416; 96417; 99212; A4216; J0640; J1642; J2469; J2916; J7040; J7050; J7060; J9190; J9263; Q5126; A9270; G0463

== ENCOUNTER 2024-12-11 14:38 | Outpatient (RCR) | payer OTHER, MEDICARE, SELFPAY ==
--- NOTE | 2024-12-12 00:01 | CTCFLWUP_ITS ---
Patient: CARLOS STODDARD : 1960 Page 4 of 5 FOLLOW UP NOTE DATE OF SERVICE: 12/11/2024 NAME: CARLOS STODDARD ACCOUNT: [id number] : 1960 AGE: 64 INTERVAL HISTORY: Patient doing better. And another 10 pounds since the last visit. 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 MMR proficient Liver lesions CT chest with contrast (03/05/2024) showed multiple small pulmonary nodules suspicious for metastatic disease. Too small to biopsy. S/p sigmoid colectomy and end colostomy (03/01/2024). S/p colonoscopy biopsy on 02/13/2024 DATE OF DIAGNOSIS: 02/12/2022. STAGE/TNM: Stage III invasive adenocarcinoma of the rectosigmoid TREATMENT HISTORY: Care?Plan Start?Date Cycle Day Intent mFOLFOX-6?+?Bevacizumab?5?mg/kg 04/17/2024 1 14 Palliative FERRlecit?he 04/16/2024 1 7 Palliative HISTORY OF PRESENT ILLNESS: Carlos Stoddard is a 64-year-old ENG speaking male with history of intermittent constipation as well as pain in the suprapubic region for the last 8 to 12 weeks and occasional rectal bleeding for the last 8-12 I will see him back in the clinic in 2 weeks. 01/17/2024: Mr. Stoddard went to emergency room because of persistent abdominal pain. A CT scan of the abdomen and pelvis with IV contrast was done01/17/2024: Hemoglobin 13.4, MCV 86, WBC 12.4, ANC 8.9, platelets 483,000. 02/10/2024: CEA 29.4. 02/13/2024: Colonoscopy showed rectosigmoid mass which on biopsy proven as an invasive adenocarcinoma well-differentiated. 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 Tobacco?Use:?Denies ETOH Use:?Quit 3 months ago - 12pk / daily and 5th whiskey x 40 yrs Drug?Note:?Denies Social?History?Note:?Lives?with? MEDICATIONS: 1. docusate sodium - 100 mg 1 tab As directed 2. hydrocodone-acetaminophen - 5-325 mg 1 tab every 6 hours for 30 Days 3. losartan - 50 mg 1 tab Daily 4. omeprazole - 40 mg 1 Capsule Daily 5. ondansetron - 8 mg 1 tab 1 tab every 8 hrs as needed for nausea 6. tamsulosin - 0.4 mg 1 Capsule Daily Medications Last Reconciled by Anjali Ross MA on 12/11/2024 ALLERGIES: Morphine sulfate REVIEW OF SYSTEMS: A complete 14-point review of systems was performed and is negative except as noted in interval history. PHYSICAL EXAMINATION: VITAL SIGNS: Temperature?99, B/P?148/96, Oxygen?Saturation?99% Weight?182.4?lbs (Change?since?11/19/24:?7.8?lbs) PAIN: 4 - Moderate pain GENERAL APPEARANCE: Appears well, in no apparent distress, appropriately interactive. HEENT: Normocephalic, no temporal wasting, normal conjunctiva, no scleral icterus, normal hearing, lips without lesions, neck normal range of motion. CARDIOVASCULAR: Not assessed. PULMONARY: Normal respiratory effort, no respiratory distress or use of accessory muscles, speaking in full sentences, no tachypnea. EXTREMITIES: No pedal edema or cyanosis. SKIN: Normal skin appearance. NEUROLOGIC: Alert and oriented x4. PSHYCHIATRIC: Appropriate affect, mood normal, behavior normal, intact thought and speech. LABORATORY DATA: I have personally reviewed and interpreted each of the patient?s relevant lab tests, abnormal findings are below: Date 10/17/24 10/31/24 ??WHITE?BLOOD?COUNT?(Thou/mm3) ? 5.4 ??RED?BLOOD?COUNT?(Miln/mm3) ? 3.90?L ??HEMOGLOBIN?(gm/dl) ? 12.8?L ??HEMATOCRIT?(%) ? 36.0?L ??PLATELET?COUNT?(Thou/mm3) ? 194 ??NEUTROPHILS?%,?AUTO?(%) ? 43 ??LYMPH?%,?AUTO?(%) ? 38 ??NEUTROPHILS,?AUTO?(Thou/mm3) ? 2.3 ??GLUCOSE,RANDOM?(mg/dL) 143?H 115?H ??BLOOD?UREA?NITROGEN?(mg/dL) 14 15 ??CREATININE?(mg/dL) 0.80 0.90 ??SODIUM?(mmol/L) 137 138 ??POTASSIUM?(mmol/L) 3.8 3.9 ??CHLORIDE?(mmol/L) 104 108?H ??CrCl?(CandG)?(ml/min) 102.91 90.44 ??AST/SGOT?(Unit/L) 13 14 ??ALT/SGPT?(Unit/L) 12 15 ??ALKALINE?PHOSPHATASE?(Unit/L) 81 76 ??BILIRUBIN,?TOTAL?(mg/dL) 0.6 0.9 ??PROTEIN?TOTAL?(gm/dl) 7.4 7.1 ??ALBUMIN,?SERUM?(gm/dl) 4.4 4.2 ??GLOBULIN?(gm/dl) 3.0 2.9 ??ALBUMIN/GLOBULIN?RATIO 1.5 1.4 ??CALCIUM,?SERUM?(mg/dL) 9.9 9.1 ??CALCIUM?SERUM?(CORRECTED)?(mg/dL) 9.9 9.1 ??CEA?(O*)?(ng/ml) ? 1.1 ASSESSMENT/PLAN: #1 most likely stage IV, MMR proficient, sigmoid colon adenocarcinoma with pulmonary metastatic disease. MMR proficient. S/p sigmoid colectomy and end colostomy. CT scan showed multiple pulmonary nodules. Nodules are very small so cannot be biopsied Patient is being treated with presumed stage IV cancer and bevacizumab was added for maximum benefit July 2024 CT scan concerning for liver lesion. Lesion is very small I will repeat scan in 2 months c CEA has been downtrending now less than 5 olonoscopy was done on 02/13/2024 Continue FOLFOX with [facility] CT scan in 2 months #2 iron deficiency anemia Hemoglobin stable will check labs again to see if patient is still deficient Patient's CEA and other labs reviewed Patient have 2 remaining chemotherapies will continue Will follow-up on the CT scan which is already ordered CBC CMP CEA ORDERS: Order # Description [id number] MD Follow Up 2 Months + CEA RETURN TO CLINIC: BILLING AND COMPLIANCE: I reviewed external records from providers outside my specialty as summarized above. I spent a total of 50 minutes on this patient?s care on the day of their visit excluding time spent related to any billed procedures. This time includes time spent with the patient as well as time spent documenting in the medical record, reviewing patients records and tests, obtaining history, placing orders, communicating with other healthcare professionals, counseling the patient, family or caregiver, and/or care coordination for the diagnoses above. Electronically Signed by: Von Boss MD T: 11:59 PM CC: PCP: Matthew Dave Referring: Matthew Dave This document was completed utilizing speech recognition software. Grammatical errors, random word insertions, pronoun errors, and incomplete sentences are an occasional consequence of this system due to software limitations, ambient noise, and hardware issues. Any formal questions or concerns about the content, text or information contained within the body of this dictation should be directly addressed to the provider for clarification.
== END 2024-12-24 23:59 | disposition home or self-care (01) ==
LOC: SCTC 14:38
PROVIDERS: PCP Family Medicine; Referring Provider Family Medicine; Visit Provider Internal Medicine Hematology & Oncology
DX: C18.7 Malignant neoplasm of sigmoid colon (principal); R91.8 Other nonspecific abnormal finding of lung field; D50.9 Iron deficiency anemia, unspecified; Z90.49 Acquired absence of other specified parts of digestive tract
CPT/HCPCS: 99212; G0463

== ENCOUNTER 2025-01-04 13:05 | Day surgery (SDC) | payer OTHER, MEDICARE, SELFPAY ==
[2025-01-04] VITALS (11 sets, daily range): BP systolic 132–163; BP diastolic 95–106; PULSE 94–109; RESP 8–23; TEMP 36.8; O2SAT 93–99; BMI 28.9
[2025-01-04] MEDS: SODIUM CHLORIDE 0.9% 500 ML 500 ML 20 ML IV (14:32)
[2025-01-04] MEDS: DiphenhydrAMINE INJ 50 MG/ML VIAL 25 MG IV (14:39)
[2025-01-04] MEDS: fentaNYL CIT INJ 50 mCg/ML AMP 2ML (ASD USE ONLY) IV (14:53)
[2025-01-04] MEDS: MIDAZOLAM INJ 1 MG/ML VIAL 2 ML (ASD USE ONLY) 2 MG IV (14:53)
== END 2025-01-04 15:46 | disposition home or self-care (01) ==
PROVIDERS: PCP Family Medicine; Referring Provider Specialist; Visit Provider Specialist
PROC: 0DBE8ZX Excision of Large Intestine, Via Natural or Artificial Opening Endoscopic, Diagnostic (ICD-10-PCS; CPT 45380; principal; 2025-01-04 13:15)
PROC: (CPT 43239; 2025-01-04 13:15)
DX: Z12.11 Encounter for screening for malignant neoplasm of colon (principal); Z85.048 Personal history of other malignant neoplasm of rectum, rectosigmoid junction, and anus
CPT/HCPCS: G0105; A4649; J1200; J2250; J3010; J7040

== ENCOUNTER 2025-02-07 10:10 | Outpatient (RCR) | payer OTHER, MEDICARE, SELFPAY ==
--- NOTE | 2025-02-14 14:17 | CTCFLWUP_ITS ---
Patient: CARLOS STODDARD : 1960 Page 5 of 7 FOLLOW UP NOTE DATE OF SERVICE: 02/07/2025 NAME: CARLOS STODDARD ACCOUNT: [id number] : 1960 AGE: 64 INTERVAL HISTORY: Patient doing better. And another 10 pounds since the last visit. Here to discuss nnatera results Jefe, a male with history of cancer, presented with concerns about positive Sadaf test results. His history includes completed chemotherapy (12 sessions ending October), with one session delayed due to heart issues. Recent colonoscopy showed benign polyp, and endoscopy revealed a small stomach ulcer negative for malignancy. Imaging previously identified a 29mm right liver lobe lesion. Patient reports weight loss and muscle weakness. Plan includes PET-CT and liver MRI to locate recurrence, specialist referral to Dr. Aguiar or Evelio, potential chemotherapy resumption, continuing omeprazole for g astritis, and proceeding with scheduled surgery. Chief Complaint Concern about positive Sadaf test result, recurrence of cancer History of Present Illness Mr. Stoddard, a patient with a history of cancer, presents for follow-up after receiving positive Sadaf test results. He reports feeling good overall but expresses concern about the positive result. The patient underwent a colonoscopy with Dr. Casey, which revealed a benign polyp. An endoscopy identified a small ulcer in the stomach, which was biopsied and found to be negative for cancer. Mr. Stoddard has been taking omeprazole and reports no more heartburn, likely attributed to mild gastritis. He completed 12 chemotherapy sessions, with the last one in October. One session was delayed due to heart issues, but all treatments were ultimately completed. Mr. Stoddard notes that he has experienced weight loss and muscle weakness since his last visit. He reports that he lost weight too quickly and has been working on rebuilding his strength. The patient acknowledges that aging has affected his recovery process, and he understands that post-surgery healing will take time and require dietary changes. The patient mentions ongoing issues with his ostomy bag, which fills unpredictably and causes inconvenience. He reports the need for frequent cleaning and suggests that larger bags might be helpful in managing this problem. Medications and Supplements - Omeprazole - Taken for ulcer in the stomach - No more heartburn, likely mild gastritis Review of Systems General: Positive for weight loss. Gastrointestinal: Negative for heartburn. 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 MMR proficient Liver lesions CT chest with contrast (03/05/2024) showed multiple small pulmonary nodules suspicious for metastatic disease. Too small to biopsy. S/p sigmoid colectomy and end colostomy (03/01/2024). S/p colonoscopy biopsy on 02/13/2024 DATE OF DIAGNOSIS: 02/12/2022. STAGE/TNM: Stage III invasive adenocarcinoma of the rectosigmoid TREATMENT HISTORY: Care?Plan Start?Date Cycle Day Intent mFOLFOX-6?+?Bevacizumab?5?mg/kg 04/17/2024 1 14 Palliative FERRlecit?he 04/16/2024 1 7 Palliative HISTORY OF PRESENT ILLNESS: Carlos Stoddard is a 64-year-old ENG speaking male with history of intermittent constipation as well as pain in the suprapubic region for the last 8 to 12 weeks and occasional rectal bleeding for the last 8-12 I will see him back in the clinic in 2 weeks. 01/17/2024: Mr. Stoddard went to emergency room because of persistent abdominal pain. A CT scan of the abdomen and pelvis with IV contrast was done01/17/2024: Hemoglobin 13.4, MCV 86, WBC 12.4, ANC 8.9, platelets 483,000. 02/10/2024: CEA 29.4. 02/13/2024: Colonoscopy showed rectosigmoid mass which on biopsy proven as an invasive adenocarcinoma well-differentiated. 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 Tobacco?Use:?Denies ETOH Use:?Quit 3 months ago - 12pk / daily and 5th whiskey x 40 yrs Drug?Note:?Denies Social?History?Note:?Lives?with? MEDICATIONS: 1. docusate sodium - 100 mg 1 tab As directed 2. hydrocodone-acetaminophen - 5-325 mg 1 tab every 6 hours for 30 Days 3. losartan - 50 mg 1 tab Daily 4. omeprazole - 40 mg 1 Capsule Daily 5. ondansetron - 8 mg 1 tab 1 tab every 8 hrs as needed for nausea 6. tamsulosin - 0.4 mg 1 Capsule Daily Medications Last Reconciled by Aleyda Clark RN on 02/07/2025 ALLERGIES: Morphine sulfate REVIEW OF SYSTEMS: A complete 14-point review of systems was performed and is negative except as noted in interval history. PHYSICAL EXAMINATION: VITAL SIGNS: Temperature?97.9, B/P?150/99, Oxygen?Saturation?96% Weight?184?lbs (Change?since?02/06/25:?-0.4?lbs) PAIN: 2 - Mild pain ECOG Performance Status: 0 - Asymptomatic and fully active GENERAL APPEARANCE: Appears well, in no apparent distress, appropriately interactive. HEENT: Normocephalic, no temporal wasting, normal conjunctiva, no scleral icterus, normal hearing, lips without lesions, neck normal range of motion. CARDIOVASCULAR: Not assessed. PULMONARY: Normal respiratory effort, no respiratory distress or use of accessory muscles, speaking in full sentences, no tachypnea. EXTREMITIES: No pedal edema or cyanosis. SKIN: Normal skin appearance. NEUROLOGIC: Alert and oriented x4. PSHYCHIATRIC: Appropriate affect, mood normal, behavior normal, intact thought and speech. LABORATORY DATA: I have personally reviewed and interpreted each of the patient?s relevant lab tests, abnormal findings are below: Date 02/07/25 02/10/25 ??WHITE?BLOOD?COUNT?(Thou/mm3) 9.4 9.6 ??RED?BLOOD?COUNT?(Miln/mm3) 4.35?L 3.71?L ??HEMOGLOBIN?(gm/dl) 13.9 12.0?L ??HEMATOCRIT?(%) 39.4?L 34.5?L ??PLATELET?COUNT?(Thou/mm3) 198 154 ??NEUTROPHILS?%,?AUTO?(%) 71 75 ??LYMPH?%,?AUTO?(%) 21 15 ??NEUTROPHILS,?AUTO?(Thou/mm3) 6.6 7.2 ??GLUCOSE,RANDOM?(mg/dL) ? 104 ??BLOOD?UREA?NITROGEN?(mg/dL) ? 14 ??CREATININE?(mg/dL) ? 0.90 ??SODIUM?(mmol/L) ? 140 ??POTASSIUM?(mmol/L) ? 4.1 ??CHLORIDE?(mmol/L) ? 106 ??CrCl?(CandG)?(ml/min) ? 95.31 ??ALBUMIN,?SERUM?(gm/dl) ? 4.0 ??CALCIUM,?SERUM?(mg/dL) ? 8.5 ??CALCIUM?SERUM?(CORRECTED)?(mg/dL) ? 8.5 ??MAGNESIUM?(mg/dL) ? 2.0 ASSESSMENT/PLAN: #1 most likely stage IV, MMR proficient, sigmoid colon adenocarcinoma with pulmonary metastatic disease. MMR proficient. S/p sigmoid colectomy and end colostomy. CT scan showed multiple pulmonary nodules. Nodules are very small so cannot be biopsied Jefe, a patient with a history of cancer, presents with concerns about recent positive Sadaf test results and upcoming surgery. Recurrent Cancer Assessment: Patient has a history of cancer with recent positive Sadaf test results, indicating persistent disease. Last chemotherapy was in October. Previous imaging showed a 29mm lesion in the right liver lobe. The patient has completed 12 chemotherapy sessions, with one session delayed due to heart issues. Naterra is positive Plan: - Order PET-CT scan and MRI of the liver to locate cancer recurrence - Refer patient to Dr. Aguiar or Evelio for hepatocolon cancer specialist consultation - Consider chemotherapy initiation based on imaging results - Maintain chemotherapy port for potential future treatments - Schedule follow-up to discuss imaging results and treatment options Gastrointestinal Issues Assessment: Patient underwent recent colonoscopy and endoscopy. A benign polyp was found during colonoscopy. Endoscopy revealed a small ulcer in the stomach, which was biopsied and found to be negative for cancer. Patient has been on omeprazole and reports resolution of heartburn symptoms. The condition is likely mild gastritis. Plan: - Continue omeprazole as prescribed - Monitor for recurrence of gastrointestinal symptoms - Follow up with clothing busheler as needed Upcoming Surgery Assessment: Patient is scheduled for surgery for colostomy reversal The patient expresses concerns about the unpredictable filling of the bag and the need for frequent cleaning. Plan: - Proceed with scheduled surgery - Consider replacing chemotherapy port during surgery if necessary - Educate patient on post-surgical care - RETURN TO CLINIC: 3 weeks BILLING AND COMPLIANCE: I reviewed external records from providers outside my specialty as summarized above. I spent a total of 50 minutes on this patient?s care on the day of their visit excluding time spent related to any billed procedures. This time includes time spent with the patient as well as time spent documenting in the medical record, reviewing patients records and tests, obtaining history, placing orders, communicating with other healthcare professionals, counseling the patient, family or caregiver, and/or care coordination for the diagnoses above. Electronically Signed by: Von Boss MD T: 12:29 AM CC: PCP: Von Boss Referring: oVn Boss This document was completed utilizing speech recognition software. Grammatical errors, random word insertions, pronoun errors, and incomplete sentences are an occasional consequence of this system due to software limitations, ambient noise, and hardware issues. Any formal questions or concerns about the content, text or information contained within the body of this dictation should be directly addressed to the provider for clarification.
== END 2025-02-23 23:59 | disposition home or self-care (01) ==
LOC: SCTC 10:10
PROVIDERS: PCP Family Medicine; Referring Provider Internal Medicine Hematology & Oncology; Visit Provider Internal Medicine Hematology & Oncology
DX: C18.7 Malignant neoplasm of sigmoid colon (principal); K25.9 Gastric ulcer, unspecified as acute or chronic, without hemorrhage or perforation; K76.89 Other specified diseases of liver; K29.70 Gastritis, unspecified, without bleeding; Z71.2 Person consulting for explanation of examination or test findings; Z90.49 Acquired absence of other specified parts of digestive tract; Z93.3 Colostomy status
CPT/HCPCS: 36415; 99212; A4216; J1642; G0463

== ENCOUNTER 2025-02-08 10:46 | Inpatient (IN) | payer OTHER, MEDICARE, SELFPAY ==
[2025-02-06 09:13] VITALS: BMI 31.1
--- NOTE | 2025-02-07 07:00 | EKG_ITS ---
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
[2025-02-07 10:27] LABS: Basophils % (Auto) 0 % (0-2.5); Eosinophils # (Auto) 0.2 Thou/mm3 (0.0-0.5); Eosinophils % (Auto) 2 % (0-10); Hematocrit 39.4 % (41.0-53.0); Hemoglobin 13.9 g/dL (13.5-16.0); Immature Granulocytes % (Auto) 1 % (0-0); Immature Granulocytes Auto 0.05 Thou/mm3 (0.00-0.00); Lymphocytes % (Auto) 21 % (10-50); Mean Corpuscular HGB Conc 35.3 g/dl (31.0-37.0); Mean Corpuscular Volume 91 fL (80-100); Monocytes # (Auto) 0.5 Thou/mm3 (0.0-0.8); Monocytes % (Auto) 6 % (0-12); Neutrophils # (Auto) 6.6 Thou/mm3 (1.8-7.7); Neutrophils % (Auto) 71 % (37-80); Nucleated Red Blood Cell % 0 /100 WBC (0); Platelet Count 198 Thou/mm3 (140-440); Red Blood Count 4.35 Miln/mm3 (4.50-5.90); White Blood Count 9.4 Thou/mm3 (3.8-10.6)
[2025-02-07 10:47] LABS: Alanine Aminotransferase 18 U/L (10-49); Albumin, Serum 4.6 gm/dL (3.4-4.8); Albumin/Globulin Ratio 1.4 (1.2-2.2); Alkaline Phosphatase 64 U/L (46-116); Anion Gap 10 (7-16); Aspartate Amino Transferase 20 U/L (0-34); BUN/Creatinine Ratio 17 Ratio (12-20); Bilirubin,Total 1.1 mg/dL (0.3-1.2); Blood Urea Nitrogen 19 mg/dL (9-23); Carbon Dioxide 25.8 mMol/L (20.0-31.0); Chloride 103 mMol/L (98-107); Creatinine (Component) 1.1 mg/dL (0.6-1.3); Estimated Creatinine Clearance 66.1 mL/min (>60); Globulin 3.3 gm/dL (2.3-3.5); Glucose 113 mg/dL (74-106); Osmolality,Calculated 280 (275-295); Potassium 4.1 mMol/L (3.4-5.1); Sodium 139 mMol/L (136-145); Total Protein 7.9 gm/dL (5.7-8.2); eGFR > 60 See Note
--- NOTE | 2025-02-07 13:53 | SUR.PREOP ---
Pt notified to come in tomorrow at 1030 for surgery.
[2025-02-08] VITALS (16 sets, daily range): BP systolic 121–153; BP diastolic 83–110; PULSE 69–101; RESP 12–20; TEMP 35.6–36.8; O2SAT 94–99; BMI 30.6; BMI 29.5
--- NOTE | 2025-02-08 14:29 | PD.SUROPNT ---
Date of Procedure 02/08/25 Pre Op Diagnosis History of sigmoid cancer status post sigmoid colectomy with end colostomy Post Op Diagnosis History of sigmoid cancer status post sigmoid colectomy with end colostomy Procedure Exploratory laparotomy, significant lysis of adhesions and reversal of colostomy Findings Significant adhesions from previous operations. No evidence of pelvic, peritoneal or omental nodules or any lesions Anesthesia GETA Pathology / specimen Other (Colostomy site, low rectal anastomosis donuts) Estimated Blood Loss 50 Condition Stable Disposition PACU Surgeon Beau Hardwick MD Surgical Staff Operation Date: 02/08/25 12:45 Case Staff Anesthesiologist: Byron Blanco RNnuclear control room operator: Angie Salinas
--- NOTE | 2025-02-08 14:37 | SUR.PHASEI ---
1437: Pt. AAOx4, vitals stable, breathing unlabored, complaint of pain, will give pain medication, dressing to ABD CDI, ABD Binder in place, rivera catheter in place draining clear yellow urine, report received from MD Blanco and Rustam GALVEZ.
[2025-02-08] MEDS: KETOROLAC INJ 30 MG/ML VIAL IVP (14:47)
[2025-02-08] MEDS: KCL 20 mEq/L in D5-1/2NS 20 MEQ/1,000 ML BAG 60 MEQ IV (14:53)
[2025-02-08] MEDS: HYDROmorphone 1 MG/ML PCA SYRINGE 30ML PCA (14:56)
--- NOTE | 2025-02-08 16:05 | PC.NURSE ---
Report received from WEIGHT RECORDERLENNY Orourke.
--- NOTE | 2025-02-08 16:21 | SUR.PHASEI ---
1621: Pt. AAOx4, vitals stable, breathing unlabored, no complaint of pain or nausea, dressing to ABD CDI, no active bleed noted, ABD Binder in place, report given to Chris RN prior to transfer to room 369. Pt. transferred with all personal belongings. Family aware of transfer to room.
[2025-02-08] MEDS: PANTOPRAZOLE INJ 40 MG VIAL IVP (17:40)
[2025-02-08] MEDS: CEFOXITIN 2 GM in SODIUM CHLORIDE 0.9% (Popper) 50 ML IV ×2 (17:40→23:21)
[2025-02-08] MEDS: ACETAMINOPHEN IVPB 1,000 MG/100 ML VIAL 250 MG IV (18:32)
[2025-02-08] MEDS: DOCUSATE SOD 100 MG CAPSULE PO (20:15)
[2025-02-08] MEDS: ASCORBIC ACID 250 MG TABLET 500 MG PO (20:15)
[2025-02-09] VITALS (7 sets, daily range): BP systolic 111–134; BP diastolic 72–92; PULSE 75–96; RESP 16–20; TEMP 36.4–36.6; O2SAT 97–98
[2025-02-09] MEDS: ACETAMINOPHEN IVPB 1,000 MG/100 ML VIAL 250 MG IV ×3 (00:01→11:12)
[2025-02-09] MEDS: CEFOXITIN 2 GM in SODIUM CHLORIDE 0.9% (Popper) 50 ML IV ×3 (05:57→17:02)
[2025-02-09] MEDS: KCL 20 mEq/L in D5-1/2NS 20 MEQ/1,000 ML BAG 60 MEQ IV (07:02)
[2025-02-09] MEDS: TAMSULOSIN HCL 0.4 MG CAPSULE PO (08:06)
[2025-02-09] MEDS: ENOXAPARIN SOD INJ 40 MG/0.4 ML SYRINGE SC (08:06)
[2025-02-09] MEDS: PANTOPRAZOLE INJ 40 MG VIAL IVP (08:06)
[2025-02-09] MEDS: ASCORBIC ACID 250 MG TABLET 500 MG PO ×2 (08:06→20:11)
[2025-02-09] MEDS: ZINC SULFATE 220 MG CAPSULE PO (08:06)
[2025-02-09] MEDS: DOCUSATE SOD 100 MG CAPSULE PO ×2 (08:06→20:12)
[2025-02-09] MEDS: LOSARTAN POTASSIUM 25 MG TABLET 100 MG PO (08:07)
--- NOTE | 2025-02-09 13:05 | ESPR_ITS ---
Documentation for date of: 02/09/25 Subjective Subjective Narrative: Patient is seen and examined. He is complaining of incisional pain, controlled with OPERATOR COMMAND SUPPORT SYSTEMS. He denies nausea or vomiting Exam Vital Signs Temp Pulse Resp BP Pulse Ox O2 Del Method O2 Flow Rate 97.5 F 76 17 117/72 98 Nasal Cannula 3 02/09/25 12:00 02/09/25 12:00 02/09/25 12:00 02/09/25 12:00 02/09/25 12:00 02/09/25 12:00 02/09/25 12:00 Constitutional Constitutional: no acute distress Routine Abdominal Exam Comments: Abdomen is soft and minimally distended. No bowel sounds noted. Incisions with dressing clean, dry and intact Assessment & Plan Assessment Additional comments: Postop day #1 status post exploratory laparotomy, lysis of adhesions and reversal of colostomy Plan Will keep n.p.o. with ice chips today. Continue to use incentive spirometer and increase ambulation. Antibiotics will be discontinued later today. Will remove Farmer catheter tomorrow Procedures Procedures Exploratory laparotomy, significant lysis of adhesions and reversal of colostomy
--- NOTE | 2025-02-09 13:20 | PC.SS ---
SS met with patient regarding his d/c plan. Pt is alert/oriented. Pt was admitted for Exp Lap 20724. Pt confirmed demographic and contact information is correct on facesheet. Pt resides with and son. Pt ambulates independently without assistance or DME. Pt is ok with all ADLs. Patient?s pharmacy of choice is [facility] in [place]. Pt named his , Dayanna Mayberry medical decision maker if he is unable. SS provided verbal options for d/c to home or SNF. Patient?s choice is to return home upon d/c. Pt states he is not diabetic and is not on dialysis. Pt last followed up with PCP on . will provide transportation. D/C plan: Return home Next of Kin: Dayanna Mayberry, , phone# [phone] PCP: Dr. Matthew Dave Address: Correct on facesheet
[2025-02-09] MEDS: HYDROmorphone 1 MG/ML PCA SYRINGE 30ML PCA (23:59)
[2025-02-10] VITALS (7 sets, daily range): BP systolic 116–146; BP diastolic 77–99; PULSE 68–91; RESP 15–23; TEMP 36.4–37.2; O2SAT 95–99
[2025-02-10] MEDS: KCL 20 mEq/L in D5-1/2NS 20 MEQ/1,000 ML BAG 60 MEQ IV ×2 (02:45→20:25)
[2025-02-10 05:43] LABS: Basophils % (Auto) 0 % (0-2.5); Eosinophils # (Auto) 0.1 Thou/mm3 (0.0-0.5); Eosinophils % (Auto) 1 % (0-10); Hematocrit 34.5 % (41.0-53.0); Immature Granulocytes % (Auto) 1 % (0-0); Immature Granulocytes Auto 0.05 Thou/mm3 (0.00-0.00); Lymphocytes # (Auto) 1.5 Thou/mm3 (1.0-4.8); Lymphocytes % (Auto) 15 % (10-50); Mean Corpuscular HGB Conc 34.8 g/dl (31.0-37.0); Mean Corpuscular Hemoglobin 32.3 pg (25.0-35.0); Mean Corpuscular Volume 93 fL (80-100); Monocytes # (Auto) 0.8 Thou/mm3 (0.0-0.8); Monocytes % (Auto) 9 % (0-12); Neutrophils # (Auto) 7.2 Thou/mm3 (1.8-7.7); Neutrophils % (Auto) 75 % (37-80); Nucleated Red Blood Cell % 0 /100 WBC (0); Platelet Count 154 Thou/mm3 (140-440); RDW Standard Deviation 43.4 fL (35.1-43.9); Red Blood Count 3.71 Miln/mm3 (4.50-5.90); White Blood Count 9.6 Thou/mm3 (3.8-10.6)
[2025-02-10 06:29] LABS: Anion Gap 9 (7-16); BUN/Creatinine Ratio 16 Ratio (12-20); Blood Urea Nitrogen 14 mg/dL (9-23); Calcium 8.5 mg/dL (8.3-10.6); Calcium (Corrected) 8.5 mg/dL (8.5-10.1); Carbon Dioxide 25.2 mMol/L (20.0-31.0); Chloride 106 mMol/L (98-107); Creatinine (Component) 0.9 mg/dL (0.6-1.3); Estimated Creatinine Clearance 81.6 mL/min (>60); Glucose 104 mg/dL (74-106); Osmolality,Calculated 279 (275-295); Phosphorous 1.8 mg/dL (2.4-5.1); Potassium 4.1 mMol/L (3.4-5.1); Sodium 140 mMol/L (136-145); eGFR > 60 See Note
[2025-02-10] MEDS: DOCUSATE SOD 100 MG CAPSULE PO ×2 (07:38→20:16)
[2025-02-10] MEDS: ZINC SULFATE 220 MG CAPSULE PO (07:38)
[2025-02-10] MEDS: TAMSULOSIN HCL 0.4 MG CAPSULE PO (07:38)
[2025-02-10] MEDS: LOSARTAN POTASSIUM 25 MG TABLET 100 MG PO (07:39)
[2025-02-10] MEDS: ASCORBIC ACID 250 MG TABLET 500 MG PO ×2 (07:39→20:16)
[2025-02-10] MEDS: PANTOPRAZOLE INJ 40 MG VIAL IVP (07:39)
[2025-02-10] MEDS: ENOXAPARIN SOD INJ 40 MG/0.4 ML SYRINGE SC (07:39)
--- NOTE | 2025-02-10 16:48 | PC.NURSE ---
[id number].
[2025-02-11] VITALS (8 sets, daily range): BP systolic 117–160; BP diastolic 81–105; PULSE 84–113; RESP 14–20; TEMP 36.3–36.8; O2SAT 94–98; BMI 29.4
[2025-02-11] MEDS: HYDROmorphone 1 MG/ML PCA SYRINGE 30ML PCA (00:29)
--- NOTE | 2025-02-11 00:36 | PC.NURSE ---
Wasted 27ml of Dilaudid WEB OPERATIONS ADMINISTRATOR with Maribel GALVEZ.
--- NOTE | 2025-02-11 07:54 | PD.SURPROG ---
Documentation for date of: 02/11/25 Subjective Subjective Narrative: Patient is seen and examined. His pain is improving. He is tolerating clear liquids without nausea or vomiting. He started passing flatus but no bowel movement. He has been voiding without difficulty since his Farmer was removed yesterday Exam Vital Signs Temp Pulse Resp BP Pulse Ox O2 Del Method O2 Flow Rate 97.4 F 86 18 140/97 H 95 Nasal Cannula 3 02/11/25 04:00 02/11/25 04:00 02/11/25 06:23 02/11/25 04:00 02/11/25 04:00 02/11/25 04:00 02/11/25 04:00 Constitutional Constitutional: no acute distress Routine Abdominal Exam Comments: Abdomen is soft and very minimally distended. Incisions with dressings clean, dry and intact. He has bowel sounds Assessment & Plan Assessment Additional comments: Postop day #3 status post exploratory laparotomy lysis of adhesions and reversal of colostomy Plan Will advance to full liquids and Ensure supplements. DC AIRPORT LOCATION MANAGER. Continue to ambulate and use incentive spirometer Procedures Procedures Exploratory laparotomy, significant lysis of adhesions and reversal of colostomy
[2025-02-11] MEDS: LOSARTAN POTASSIUM 25 MG TABLET 100 MG PO (08:59)
[2025-02-11] MEDS: DOCUSATE SOD 100 MG CAPSULE PO ×2 (08:59→20:32)
[2025-02-11] MEDS: ENOXAPARIN SOD INJ 40 MG/0.4 ML SYRINGE SC (08:59)
[2025-02-11] MEDS: PANTOPRAZOLE 40 MG TABLET PO (09:00)
[2025-02-11] MEDS: TAMSULOSIN HCL 0.4 MG CAPSULE PO (09:00)
[2025-02-11] MEDS: ZINC SULFATE 220 MG CAPSULE PO (09:00)
[2025-02-11] MEDS: ASCORBIC ACID 250 MG TABLET 500 MG PO ×2 (09:00→20:32)
[2025-02-11] MEDS: HYDROmorphone INJ 2 MG/ML VIAL 1 MG IVP ×3 (09:28→20:39)
--- NOTE | 2025-02-11 10:22 | PC.SS ---
Follow up note: Advance diet. On IV meds. Pain management. Pt will return home upon dc.
--- NOTE | 2025-02-11 15:09 | PD.ANESPROG ---
Documentation for date of: 02/11/25 POST ANESTHESIA NOTE: Patient had GETA for ex lap colostomy reversal on 02/08/25. I just saw her briefly around 14:45 in 369 and he was alert and calm in bed, NAD, his visitor at bedside, denied any problems from anesthesia. Byron Blanco MD Anesthesia Progress Note Progress Note Most recent Vital Signs: Last Vital Signs Temp 98 F 02/11/25 12:00 Pulse 100 02/11/25 12:00 Resp 17 02/11/25 12:00 BP 122/94 H 02/11/25 12:00 Pulse Ox 96 02/11/25 12:00 O2 Del Method Nasal Cannula 02/11/25 12:00 O2 Flow Rate 3 02/11/25 12:00
[2025-02-11] MEDS: HYDROcodone/APAP 10/325 TAB PO (15:21)
[2025-02-12] VITALS (8 sets, daily range): BP systolic 114–131; BP diastolic 81–93; PULSE 89–100; RESP 18–92; TEMP 36.2–36.7; O2SAT 93–97
[2025-02-12] MEDS: HYDROmorphone INJ 2 MG/ML VIAL 1 MG IVP ×6 (00:54→22:35)
[2025-02-12] MEDS: ENOXAPARIN SOD INJ 40 MG/0.4 ML SYRINGE SC (08:29)
[2025-02-12] MEDS: LOSARTAN POTASSIUM 25 MG TABLET 100 MG PO (08:29)
[2025-02-12] MEDS: ZINC SULFATE 220 MG CAPSULE PO (08:30)
[2025-02-12] MEDS: PANTOPRAZOLE 40 MG TABLET PO (08:30)
[2025-02-12] MEDS: DOCUSATE SOD 100 MG CAPSULE PO ×2 (08:30→20:11)
[2025-02-12] MEDS: TAMSULOSIN HCL 0.4 MG CAPSULE PO (08:30)
[2025-02-12] MEDS: ASCORBIC ACID 250 MG TABLET 500 MG PO ×2 (08:30→20:11)
[2025-02-12] MEDS: HYDROcodone/APAP 10/325 TAB PO (11:24)
--- NOTE | 2025-02-12 11:59 | PD.SURPROG ---
Documentation for date of: 02/12/25 Subjective Subjective Narrative: Patient is seen and examined. Pain is improving. He is tolerating liquid diet without nausea or vomiting. He is passing flatus and had a bowel movement today Exam Vital Signs Temp Pulse Resp BP Pulse Ox O2 Del Method O2 Flow Rate 97.1 F 96 18 117/81 93 L Room Air 3 02/12/25 08:00 02/12/25 08:29 02/12/25 08:00 02/12/25 08:29 02/12/25 08:00 02/12/25 08:00 02/11/25 20:00 Constitutional Constitutional: no acute distress Routine Abdominal Exam Comments: Abdomen is soft and nondistended. Incisions are clean, dry and intact. He has active bowel sounds Assessment & Plan Assessment Additional comments: Postop day #4 status post exploratory laparotomy lysis of adhesions and reversal of colostomy Plan Will advance to soft diet. Will plan for replacement of his Port-A-Cath tomorrow as his Port-A-Cath has not been functioning. Risks include but not limited to infection, bleeding, pneumothorax, possible need for chest tube placement, need for further procedure and or operation discussed with the patient. Benefits and alternatives explained to him, all of his questions answered, he agreed and consented to proceed with the operation. Procedures Procedures Exploratory laparotomy, significant lysis of adhesions and reversal of colostomy
[2025-02-13] VITALS (11 sets, daily range): BP systolic 104–126; BP diastolic 68–93; PULSE 89–102; RESP 12–94; TEMP 36.1–37.2; O2SAT 94–98
[2025-02-13] MEDS: HYDROmorphone INJ 2 MG/ML VIAL 1 MG IVP (04:12)
[2025-02-13] MEDS: HYDROcodone/APAP 10/325 TAB PO ×2 (06:16→14:53)
[2025-02-13] MEDS: PANTOPRAZOLE 40 MG TABLET PO (08:06)
[2025-02-13] MEDS: TAMSULOSIN HCL 0.4 MG CAPSULE PO (08:06)
[2025-02-13] MEDS: LOSARTAN POTASSIUM 25 MG TABLET 100 MG PO (08:06)
[2025-02-13] MEDS: DOCUSATE SOD 100 MG CAPSULE PO (08:06)
[2025-02-13] MEDS: ZINC SULFATE 220 MG CAPSULE PO (08:06)
[2025-02-13] MEDS: ASCORBIC ACID 250 MG TABLET 500 MG PO (08:06)
--- NOTE | 2025-02-13 11:00 | XR_ITS ---
Examination: AP chest single view Technique one AP portable supine chest single view Date and time: February 13, 2025 1120 hours INDICATIONS: Port-A-Cath placement. FINDINGS: Port-A-Cath wire guide is coiled in the upper left chest No pneumothorax IMPRESSION: Port-A-Cath wire guide is coiled overlying the upper left chest
--- NOTE | 2025-02-13 11:35 | SUR.PHASEI ---
1135 Patient arrived to recovery resting comfortably in [facility], on oxygen 10L via oxy mask, breathing unlabored, vital signs stable, denies pain, dressing intact to left upper chest dermabond, gauze, tegaderm, no bleeding noted, denies nausea, report received from Dr. Foster and Rustam GALVEZ
--- NOTE | 2025-02-13 11:44 | ESOP_ITS ---
Date of Procedure 02/13/25 Pre Op Diagnosis Mechanical complication of Port-A-Cath Post Op Diagnosis Mechanical complication of Port-A-Cath Procedure Attempted replacement of the Port-A-Cath, failed Removal of Port-A-Cath Findings No external evidence of infection. Unable to advance guidewire and left subclavian or left internal jugular veins Procedure Description Patient brought into the operating room supine position. After administration of general tracheal anesthesia, patient's left upper chest and neck prepped and draped in standard surgical manner. After administration of local anesthesia an incision was made over her previous Port-A-Cath insertion site and dissection was deepened into soft tissue. The capsule surrounding the previously placed port was excised and the port was mobilized. The junction between the catheter and port was divided. I placed the guidewire through the catheter, however I was able to advance the guidewire. The catheter was removed without any backbleeding. The left subclavian vein was accessed with a needle, however I was unable to advance the guidewire. I then elected to access the left internal jugular vein. The vein was easily accessed, however once again I was able to advance the guidewire. At this point I elected to abort placement of another Port-A-Cath. The wound was washed and irrigated. Hemostasis was adequate and satisfactory. Subcutaneous tissue closed with interrupted sutures using 2-0 Vicryl and incision was closed with 4 Monocryl in subcuticular fashion. Moose mabond and pressure dressings applied. Patient tolerated procedure well. He was extubated, breathing spontaneously and without difficulty and was transferred to postanesthesia care in stable condition. Anesthesia GETA and local Pathology / specimen Other (Port-A-Cath for gross inspection) Estimated Blood Loss 5 Condition Stable Disposition PACU Surgeon Beau Hardwick MD Surgical Staff Operation Date: 02/13/25 11:15 Case Staff Anesthesiologist: Ken Foster
--- NOTE | 2025-02-13 11:59 | SUR.PHASEI ---
patient eating ice chips; tolerating well
--- NOTE | 2025-02-13 12:14 | SUR.PHASEI ---
1210 Report given to En RN, patient meets discharge criteria from recovery, awake and alert, talking with this residential mortgage underwriter, on oxygen 2L via nasal cannula, breathing unlabored, vital signs stable, denies pain, dressing intact; no bleeding noted, eating ice chips; tolerating well, denies nausea 1214 Patient transported via gurney to room 369 without incident, patient awaiting in room, patient able to ambulate with stand by assist from gurney to bed, patient resting comfortably in bed with En RN at bedside when this residential mortgage underwriter left patients room
--- NOTE | 2025-02-13 16:21 | PC.SS ---
Follow up note: Port cath replacement was attempted but failed. Pt will return home upon dc. Pt is on IV antibiotic.
--- NOTE | 2025-02-13 16:37 | PD.SURDS ---
Planned Discharge Date 02/13/25 DS: Providers Provider Date of admission: 02/08/25 10:46 Primary care physician: Matthew Dave MD Admitting Provider: Beau Hardwick MD Attending Provider on Admission: Beau Hardwick MD Attending Provider on DC: Beau Hardwick MD Discharging Provider: Beau Hardwick MD Diagnosis Problem List Completed Was Problem List Reviewed/Reconciled?: Yes Hospital Course Brief History: 64-year-old male with history of hypertension and sigmoid colon cancer (T4b N0) had undergone sigmoid colectomy with end colostomy. He has completed his chemotherapy and his recent colonoscopy was unremarkable. Patient underwent exploratory laparotomy, lysis of adhesions and reversal of colostomy. His Farmer catheter was removed on postop day #2, he was able to void without difficulty. He was started on clear liquids and his diet was gradually advanced. He was eating and tolerating diet well without nausea or vomiting. He started passing flatus and had multiple bowel movements. His incisions are clean, dry and intact. He has remained hemodynamically stable throughout hospitalization. He was also taken to the operating room for attempted replacement of the Port-A-Cath that was not successful (for further details please refer to the operative report). His Port-A-Cath was removed. He is being discharged home in stable condition. Status at Discharge Functional status at discharge: independent ambulation Overall status at discharge: patient is progressing back to baseline Exam Vital Signs Temp Pulse Resp BP Pulse Ox O2 Del Method O2 Flow Rate 98.0 F 89 17 115/84 96 Room Air 2 02/13/25 16:00 02/13/25 16:00 02/13/25 16:02/13/25 16:00 02/13/25 16:02/13/25 16:02/13/25 12:05 Constitutional Constitutional: no acute distress Routine Abdominal Exam Abdominal: Present soft, normoactive bowel sounds and tenderness (Mild ayo-incisional tenderness. Incisions are clean, dry and intact); Absent distended Discharge Plan Plan Patient Disposition: HOME (Self Care) Prescriptions/Referrals Prescriptions/Med Rec: New hydrocodone-acetaminophen 10-325 mg Tablet 1 tab PO Q6HR MDD 4 PRN (Reason: pain (scale score 7-10)) Qty: 30 0RF ascorbic acid (vitamin C) [Vitamin C] 250 mg Tablet 500 mg PO BID Qty: 60 0RF docusate sodium 100 mg Capsule 100 mg PO BID Qty: 60 0RF zinc sulfate 50 mg zinc (220 mg) Capsule 220 mg PO QDAY Qty: 30 0RF Continued tamsulosin [Flomax] 0.4 mg capsule 0.4 mg PO QDAY Qty: 30 0RF hydrocodone-acetaminophen 10-325 mg tablet 1 tab PO QDAY PRN (Reason: pain) Patient Comments: take 1 tablet by mouth every 4 to 6 hours if needed for pain omeprazole 40 mg capsule,delayed release(DR/EC) 40 mg PO DAILY Patient Comments: take 1 capsule by mouth once daily losartan 100 mg tablet 100 mg PO QDAY Referrals: Matthew Dave MD [Primary Care Provider] - Patient/Caregiver Discharge Instructions Discharge Activity: activity as tolerated Print Language: Croatian Activity Restrictions/Additional Instructions: May shower in 24 hours. Avoid lifting, straining, pulling or pushing for 8 weeks. May take oral over the counter laxatives if no bowel movements in 2 days. Wear abdominal binder at all times. Follow up with Dr. Hardwick in 2 weeks, please call [phone] for an appointment. Stand Alone Forms: [employer] Award Info., Patient Portal Info Letter Discharge Order Discharge Orders: Discharge (Routine); Ordered 02/13/25 Ordered By: Beau Hardwick Procedures Procedure Date 02/08/25 Procedures Exploratory laparotomy, lysis of adhesions and reversal of colostomy Attempted replacement of the Port-A-Cath, failed (02/13/2025/ Removal of Port-A-Cath (02/13/2025)
== END 2025-02-13 19:04 | disposition home or self-care (01) | DRG 331 ==
LOC: S2W1 10:47 → S3SX 16:28
PROVIDERS: Anesthesiology; Admitting Provider Surgery; PCP Family Medicine; Visit Provider Surgery
PROC: 0DBN0ZZ Excision of Sigmoid Colon, Open Approach (ICD-10-PCS; CPT 49000; principal; 2025-02-08 12:30)
DX: Z43.3 Encounter for attention to colostomy (principal); I10 Essential (primary) hypertension; Z85.038 Personal history of other malignant neoplasm of large intestine; Z79.899 Other long term (current) drug therapy
CPT/HCPCS: 36415; 71046; 80053; 80069; 83735; 85025; 93005; A4217; A4649; C1788; J0131; J0690; J0694; J1100; J1171; J1644; J1650; J1885; J2250; J2405; J2470; J2704; J2765; J3010; J3480; J3490; J7050; A9270; J1805

== ENCOUNTER 2025-03-25 08:36 | Outpatient (RCR) | payer OTHER, MEDICARE, SELFPAY ==
[2025-03-25 10:06] LABS: Basophils % (Auto) 0 % (0-2.5); Eosinophils # (Auto) 0.2 Thou/mm3 (0.0-0.5); Eosinophils % (Auto) 3 % (0-10); Hematocrit 33.9 % (41.0-53.0); Hemoglobin 11.9 g/dL (13.5-16.0); Immature Granulocytes % (Auto) 1 % (0-0); Immature Granulocytes Auto 0.05 Thou/mm3 (0.00-0.00); Lymphocytes # (Auto) 2.1 Thou/mm3 (1.0-4.8); Lymphocytes % (Auto) 35 % (10-50); Mean Corpuscular HGB Conc 35.1 g/dl (31.0-37.0); Mean Corpuscular Hemoglobin 31.7 pg (25.0-35.0); Mean Corpuscular Volume 90 fL (80-100); Monocytes # (Auto) 0.6 Thou/mm3 (0.0-0.8); Monocytes % (Auto) 10 % (0-12); Neutrophils % (Auto) 50 % (37-80); Nucleated Red Blood Cell % 0 /100 WBC (0); Platelet Count 210 Thou/mm3 (140-440); RDW Standard Deviation 42.3 fL (35.1-43.9); Red Blood Count 3.75 Miln/mm3 (4.50-5.90); White Blood Count 5.9 Thou/mm3 (3.8-10.6)
[2025-03-25 10:26] LABS: Alanine Aminotransferase 14 U/L (10-49); Albumin, Serum 4.3 gm/dL (3.4-4.8); Albumin/Globulin Ratio 1.4 (1.2-2.2); Alkaline Phosphatase 62 U/L (46-116); Anion Gap 8 (7-16); Aspartate Amino Transferase 19 U/L (0-34); BUN/Creatinine Ratio 12 Ratio (12-20); Bilirubin,Total 0.7 mg/dL (0.3-1.2); Blood Urea Nitrogen 11 mg/dL (9-23); Calcium 9.3 mg/dL (8.3-10.6); Calcium (Corrected) 9.3 mg/dL (8.5-10.1); Carbon Dioxide 22.6 mMol/L (20.0-31.0); Chloride 107 mMol/L (98-107); Creatinine (Component) 0.9 mg/dL (0.6-1.3); Glucose 101 mg/dL (74-106); Osmolality,Calculated 275 (275-295); Potassium 3.8 mMol/L (3.4-5.1); Sodium 138 mMol/L (136-145); Total Protein 7.3 gm/dL (5.7-8.2); eGFR > 60 See Note
[2025-03-25 10:29] LABS: Carcinoembryonic Antigen 35.8 ng/mL (0.0-5.0)
== END 2025-03-25 23:59 | disposition home or self-care (01) ==
LOC: SCTC 08:36
PROVIDERS: PCP Family Medicine; Referring Provider Family Medicine; Visit Provider Internal Medicine Hematology & Oncology
DX: C19 Malignant neoplasm of rectosigmoid junction (principal); C78.00 Secondary malignant neoplasm of unspecified lung; Z90.49 Acquired absence of other specified parts of digestive tract; Z93.3 Colostomy status
CPT/HCPCS: 36415; 80053; 82378; 85025

== ENCOUNTER → 2025-04-02 | Outpatient (CLI) | payer OTHER, MEDICARE, SELFPAY ==
--- NOTE | 2025-04-02 08:45 | XR_ITS ---
Examination: MRI abdomen with intravenous contrast. MRI abdomen without intravenous contrast. Date and time of exam: April 02, [address] chest abdomen pelvis October 22, 2024, August 07, 2024 INDICATIONS: Diagnosis malignant neoplasm of the colon, 0.9 mm right lobe liver lesion on CT abdomen October 22, 2024 Technique: Multiple axial, sagittal and coronal sections of the abdomen obtained. Transverse images, TR 6020, TE 107. T1 weighted transverse images, TR 582, TE 9.5. T2-weighted sagittal images, TR 4000, TE 105. T2-weighted sagittal images, TR 4000, TE 5. Coronal images, TR 4210, TE 107. Axial and coronal images are obtained post 20 cc intravenous injection, gadolinium. Findings: Lateral right lobe liver lesion, mild increased signal on the precontrast images, 18 x 22 mm Postcontrast images demonstrate irregular enhancement throughout this liver lesion No intrahepatic biliary tract dilatation No gallstones Spleen not enlarged. No extrahepatic biliary tract dilatation, no common hepatic or common bile duct stones No pancreatic mass or dilated pancreatic duct Negative for ascites Aorta normal size On this study 10 mm left lateral periaortic lymph node IMPRESSION: Enhancing 18 x 22 mm right lobe liver lesion most consistent with hepatic metastasis, this lesion is amenable to CT-guided percutaneous biopsy as clinically warranted 10 mm left lateral para-aortic lymph node, not visualized on the CT abdomen October 22, 2024
== END | disposition home or self-care (01) ==
LOC: SMRI 08:39
PROVIDERS: PCP Family Medicine; Referring Provider Internal Medicine Hematology & Oncology; Visit Provider Internal Medicine Hematology & Oncology
DX: K76.9 Liver disease, unspecified (principal); C18.9 Malignant neoplasm of colon, unspecified; C18.7 Malignant neoplasm of sigmoid colon
CPT/HCPCS: 74183; A9579

== ENCOUNTER → 2025-04-02 | Outpatient (CLI) | payer OTHER, MEDICARE, SELFPAY ==
--- NOTE | 2025-04-02 12:30 | XR_ITS ---
EXAMINATION: PET/CT FUSION SKULL TO THIGH EXAM DATE AND TIME: April 02, 2025 1331 hours, comparison CT chest abdomen pelvis October 22, 2024, CT chest abdomen pelvis August 07, 2024, MRI abdomen April 02, 2025 INDICATIONS: Diagnosis malignant neoplasm of the colon, post treatment restaging CTDI:vol (mGy) 6.41 DLP: (mGycm) 585.25 PROCEDURE: 16.5 mCi FDG was administered intravenously To allow for distribution and uptake of radiotracer, the patient was allowed to rest quietly in a shielded room. Imaging was performed on an integrated 16-slice PET/CT scanner, with scanning from the skull base to the mid thigh. Serum blood glucose at the time of the injection was measured 106 mg/dL. CT scanning was performed without oral or intravenous contrast material. FINDINGS: Head and Neck: 28 x 12 mm hypermetabolic activity in the left oropharynx, axial image 40, which may be artifactual Chest: 13 mm hypermetabolic pulmonary nodule left upper lobe, compared to 4 mm pulmonary nodule on CT chest October 22, 2024 3 mm pulmonary nodule left lower lobe compared to [address] chest October 22, 2024 Abdomen and Pelvis: Hypermetabolic 39 mm lateral right lobe liver lesion compared to [address] abdomen October 22, 2024 12 mm hypermetabolic medial right lobe liver lesion 8mm hypermetabolic posterior right lobe liver lesion Musculoskeletal: Marrow uptake is within normal range. IMPRESSION: 28 x 12 mm hypermetabolic activity in the left oropharynx, recommend MRI soft tissue neck follow-up to exclude true lesion in the left oropharynx 13 mm hypermetabolic pulmonary nodule left upper lobe compared to [address] chest October 22, 2024 3 mm pulmonary nodule left lower lobe compared to [address] chest October 22, 2024 39 mm lateral right lobe liver lesion New 12 mm medial right lobe liver lesion New 8 mm posterior right lobe liver lesion
== END | disposition home or self-care (01) ==
PROVIDERS: Referring Provider Internal Medicine Hematology & Oncology; Visit Provider Internal Medicine Hematology & Oncology
DX: K76.89 Other specified diseases of liver (principal); R91.8 Other nonspecific abnormal finding of lung field; C18.9 Malignant neoplasm of colon, unspecified; C18.7 Malignant neoplasm of sigmoid colon
CPT/HCPCS: 78815; A9552

== ENCOUNTER 2025-04-04 10:02 | Outpatient (RCR) | payer OTHER, MEDICARE, SELFPAY ==
--- NOTE | 2025-04-15 01:11 | CTCFLWUP_ITS ---
Patient: CARLOS STODDARD : 1960 Page 2 of 3 FOLLOW UP NOTE DATE OF SERVICE: 04/04/2025 NAME: CARLOS STODDARD ACCOUNT: [id number] : 1960 AGE: 64 INTERVAL HISTORY: Patient likely have recurrence. PET CT scan is concerning for hypermetabolic pulmonary nodule increase in size and 39 mm lesion in the right liver lobe and 2 new lesions in the right lobe of the liver. Patient discussed to start with the new oral chemotherapy. Patient will also be seeing hepatobiliary surgeon in [place] Chief Complaint Concern about positive Sadaf test result, recurrence of cancer History of Present Illness Mr. Stoddard, a patient with a history of cancer, presents for follow-up after receiving positive Sadaf test results. He reports feeling good overall but expresses concern about the positive result. The patient underwent a colonoscopy with Dr. Casey, which revealed a benign polyp. An endoscopy identified a small ulcer in the stomach, which was biopsied and found to be negative for cancer. Mr. Stoddard has been taking omeprazole and reports no more heartburn, likely attributed to mild gastritis. He completed 12 chemotherapy sessions, with the last one in October. One session was delayed due to heart issues, but all treatments were ultimately completed. Mr. Stoddard notes that he has experienced weight loss and muscle weakness since his last visit. He reports that he lost weight too quickly and has been working on rebuilding his strength. The patient acknowledges that aging has affected his recovery process, and he understands that post-surgery healing will take time and require dietary changes. Patient have patient have completed reversal of colostomy and is happy with the results. Continue to lose weight and agreeing to restarting chemotherapy. Patient do not have a port catheter and will need placement again - Omeprazole - Taken for ulcer in the stomach - No more heartburn, likely mild gastritis Review of Systems General: Positive for weight loss. Gastrointestinal: Negative for heartburn. 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 MMR proficient Liver lesions CT chest with contrast (03/05/2024) showed multiple small pulmonary nodules suspicious for metastatic disease. Too small to biopsy. S/p sigmoid colectomy and end colostomy (03/01/2024). S/p colonoscopy biopsy on 02/13/2024 DATE OF DIAGNOSIS: 02/12/2022. STAGE/TNM: Stage III invasive adenocarcinoma of the rectosigmoid TREATMENT HISTORY: Care?Plan Start?Date Cycle Day Intent mFOLFOX-6?+?Bevacizumab?5?mg/kg 04/17/2024 1 14 Palliative FERRlecit?he 04/16/2024 1 7 Palliative HISTORY OF PRESENT ILLNESS: Carlos Stoddard is a 64-year-old ENG speaking male with history of intermittent constipation as well as pain in the suprapubic region for the last 8 to 12 weeks and occasional rectal bleeding for the last 8-12 I will see him back in the clinic in 2 weeks. 01/17/2024: Mr. Stoddard went to emergency room because of persistent abdominal pain. A CT scan of the abdomen and pelvis with IV contrast was done01/17/2024: Hemoglobin 13.4, MCV 86, WBC 12.4, ANC 8.9, platelets 483,000. 02/10/2024: CEA 29.4. 02/13/2024: Colonoscopy showed rectosigmoid mass which on biopsy proven as an invasive adenocarcinoma well-differentiated. 02/07/2025 Laboratory, Imaging, and Diagnostic Test Results - Sadaf test: Positive - Colonoscopy: - Polyp found and biopsied: benign - Endoscopy: - Small ulcer found in stomach and biopsied: negative - Last scan: - 29mm lesion in the right liver lobe 04/02/[address] scan IMPRESSION: 28 x 12 mm hypermetabolic activity in the left oropharynx, recommend MRI soft tissue neck follow-up to exclude true lesion in the left oropharynx 13 mm hypermetabolic pulmonary nodule left upper lobe compared to [address] chest October 22, 2024 3 mm pulmonary nodule left lower lobe compared to [address] chest October 22, 2024 39 mm lateral right lobe liver lesion New 12 mm medial right lobe liver lesion New 8 mm posterior right lobe liver lesion 04/02/2025IMPRESSION: Enhancing 18 x 22 mm right lobe liver lesion most consistent with hepatic metastasis, this lesion is amenable to CT-guided percutaneous biopsy as clinically warranted 10 mm left lateral para-aortic lymph node, not visualized on the CT abdomen October 22, 2024 OTHER MEDICAL HISTORY/CONDITIONS: Invasive adenocarcinoma redtosigmoid colon - 02/13/24 HPylori positive - 02/13/24 Esophogeal ulcers Gastritis BPH Alcohol abuse Left knee surgery - 30 yrs ago Tonsillectomy - age 7 FAMILY HISTORY: Sibling: Brother - Kaposi's Sarcoma-dx age 22; Brother- liver - dx 67 SOCIAL HISTORY: 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 Tobacco?Use:?Denies ETOH Use:?Quit 3 months ago - 12pk / daily and 5th whiskey x 40 yrs Drug?Note:?Denies Social?History?Note:?Lives?with? MEDICATIONS: 1. docusate sodium - 100 mg 1 tab As directed 2. hydrocodone-acetaminophen - 5-325 mg 1 tab every 6 hours for 30 Days 3. Lonsurf - 20-8.19 mg 3 tab twice a day 4. losartan - 50 mg 1 tab Daily 5. omeprazole - 40 mg 1 Capsule Daily 6. ondansetron - 8 mg 1 tab 1 tab every 8 hrs as needed for nausea 7. tamsulosin - 0.4 mg 1 Capsule Daily Medications Last Reconciled by Anjali Ponce MD on 04/04/2025 ALLERGIES: Morphine sulfate REVIEW OF SYSTEMS: A complete 14-point review of systems was performed and is negative except as noted in interval history. PHYSICAL EXAMINATION: VITAL SIGNS: PAIN: 0 - No pain ECOG Performance Status: 0 - Asymptomatic and fully active GENERAL APPEARANCE: Appears well, in no apparent distress, appropriately interactive. HEENT: Normocephalic, no temporal wasting, normal conjunctiva, no scleral icterus, normal hearing, lips without lesions, neck normal range of motion. CARDIOVASCULAR: Not assessed. PULMONARY: Normal respiratory effort, no respiratory distress or use of accessory muscles, speaking in full sentences, no tachypnea. EXTREMITIES: No pedal edema or cyanosis. SKIN: Normal skin appearance. NEUROLOGIC: Alert and oriented x4. PSHYCHIATRIC: Appropriate affect, mood normal, behavior normal, intact thought and speech. LABORATORY DATA: I have personally reviewed and interpreted each of the patient?s relevant lab tests, abnormal findings are below: Date 02/10/25 03/25/25 ??WHITE?BLOOD?COUNT?(Thou/mm3) 9.6 5.9 ??RED?BLOOD?COUNT?(Miln/mm3) 3.71?L 3.75?L ??HEMOGLOBIN?(gm/dl) 12.0?L 11.9?L ??HEMATOCRIT?(%) 34.5?L 33.9?L ??PLATELET?COUNT?(Thou/mm3) 154 210 ??NEUTROPHILS?%,?AUTO?(%) 75 50 ??LYMPH?%,?AUTO?(%) 15 35 ??NEUTROPHILS,?AUTO?(Thou/mm3) 7.2 3.0 ??GLUCOSE,RANDOM?(mg/dL) ? 101 ??BLOOD?UREA?NITROGEN?(mg/dL) ? 11 ??CREATININE?(mg/dL) ? 0.90 ??SODIUM?(mmol/L) ? 138 ??POTASSIUM?(mmol/L) ? 3.8 ??CHLORIDE?(mmol/L) ? 107 ??CrCl?(CandG)?(ml/min) ? 95.72 ??AST/SGOT?(Unit/L) ? 19 ??ALT/SGPT?(Unit/L) ? 14 ??ALKALINE?PHOSPHATASE?(Unit/L) ? 62 ??BILIRUBIN,?TOTAL?(mg/dL) ? 0.7 ??PROTEIN?TOTAL?(gm/dl) ? 7.3 ??ALBUMIN,?SERUM?(gm/dl) ? 4.3 ??GLOBULIN?(gm/dl) ? 3.0 ??ALBUMIN/GLOBULIN?RATIO ? 1.4 ??CALCIUM,?SERUM?(mg/dL) ? 9.3 ??CALCIUM?SERUM?(CORRECTED)?(mg/dL) ? 9.3 ??CEA?(O*)?(ng/ml) ? 35.8?H ASSESSMENT/PLAN: #1 stage IV, MMR proficient, sigmoid colon adenocarcinoma with pulmonary metastatic disease. MMR proficient. S/p sigmoid colectomy and end colostomy. CT scan showed multiple pulmonary nodules. Nodules have increased in size on PET CT scan Assessment: Patient has a history of cancer with recent positive Sadaf test results, indicating persistent disease. Last chemotherapy was in October. Previous imaging showed a 29mm lesion in the right liver lobe. The patient has completed 12 chemotherapy sessions, with one session delayed due to heart issues. Naterra is positive Plan: -PET CT scan shows progression of cancer - Refer patient to Dr. Aguiar or [facility] for hepatocolon cancer specialist consultation Will restart chemotherapy -Will refer to interventional radiology for confirmation of recurrence in liver with a biopsy Will start on Lonsurf and added bevacizumab with second cycle. Patient do not want chemotherapy with the pump at this time Will consider FOLFIRI in third line -#2 hypermetabolic mass in the oropharynx concern for head and neck cancer Will get CT scan of the neck as patient is high risk and have extensive tobacco chewing history Patient need evaluation to make sure he does not have another primary Referral placed for possible biopsy of the oral mass ORDERS: Order # Description [id number] CT Scan + Neck + Without Contrast [id number] RETURN TO CLINIC: I reviewed the diagnosis, prognosis, and recommended treatment/procedure options with the patient (and/or their legal senior customer service representative), including the potential benefits, risks, side effects and alternative therapies. We also discussed the option of no treatment and the possibility of clinical trial participation, if applicable. All questions were addressed, and they demonstrated understanding. They provided informed consent to proceed with the proposed plan of care. BILLING AND COMPLIANCE: I reviewed external records from providers outside my specialty as summarized above. I spent a total of 50 minutes on this patient?s care on the day of their visit excluding time spent related to any billed procedures. This time includes time spent with the patient as well as time spent documenting in the medical record, reviewing patients records and tests, obtaining history, placing orders, communicating with other healthcare professionals, counseling the patient, family or caregiver, and/or care coordination for the diagnoses above. Electronically Signed by: Von Boss MD T: 1:09 AM CC: PCP: Matthew Dave Referring: Dave, Matthew L This document was completed utilizing speech recognition software. Grammatical errors, random word insertions, pronoun errors, and incomplete sentences are an occasional consequence of this system due to software limitations, ambient noise, and hardware issues. Any formal questions or concerns about the content, text or information contained within the body of this dictation should be directly addressed to the provider for clarification.
== END 2025-04-25 23:59 | disposition home or self-care (01) ==
LOC: SCTC 10:02
PROVIDERS: PCP Family Medicine; Referring Provider Family Medicine; Visit Provider Internal Medicine Hematology & Oncology
DX: C18.7 Malignant neoplasm of sigmoid colon (principal); C78.02 Secondary malignant neoplasm of left lung; Z92.21 Personal history of antineoplastic chemotherapy; K76.89 Other specified diseases of liver; R22.1 Localized swelling, mass and lump, neck; Z87.891 Personal history of nicotine dependence
CPT/HCPCS: 99212; G0463

== ENCOUNTER 2025-04-16 08:15 | Day surgery (SDC) | payer OTHER, MEDICARE, SELFPAY ==
[2025-04-15 07:03] VITALS: BMI 29.9
[2025-04-15 10:49] LABS: Basophils # (Auto) 0.0 Thou/mm3 (0.0-0.2); Basophils % (Auto) 1 % (0-2.5); Eosinophils # (Auto) 0.1 Thou/mm3 (0.0-0.5); Eosinophils % (Auto) 2 % (0-10); Hematocrit 37.0 % (41.0-53.0); Hemoglobin 12.7 g/dL (13.5-16.0); Immature Granulocytes Auto 0.03 Thou/mm3 (0.00-0.00); Lymphocytes # (Auto) 1.5 Thou/mm3 (1.0-4.8); Lymphocytes % (Auto) 25 % (10-50); Mean Corpuscular HGB Conc 34.3 g/dl (31.0-37.0); Mean Corpuscular Hemoglobin 31.9 pg (25.0-35.0); Mean Corpuscular Volume 93 fL (80-100); Monocytes # (Auto) 0.5 Thou/mm3 (0.0-0.8); Monocytes % (Auto) 8 % (0-12); Neutrophils # (Auto) 3.8 Thou/mm3 (1.8-7.7); Neutrophils % (Auto) 64 % (37-80); Nucleated Red Blood Cell # 0.00 Thou/mm3 (0.00-0.00); Nucleated Red Blood Cell % 0 /100 WBC (0); Platelet Count 235 Thou/mm3 (140-440); RDW Standard Deviation 42.6 fL (35.1-43.9); Red Blood Count 3.98 Miln/mm3 (4.50-5.90); White Blood Count 5.9 Thou/mm3 (3.8-10.6)
[2025-04-15 11:08] LABS: Alanine Aminotransferase 13 U/L (10-49); Albumin, Serum 4.5 gm/dL (3.4-4.8); Albumin/Globulin Ratio 1.5 (1.2-2.2); Alkaline Phosphatase 71 U/L (46-116); Anion Gap 10 (7-16); Aspartate Amino Transferase 19 U/L (0-34); BUN/Creatinine Ratio 12 Ratio (12-20); Bilirubin,Total 0.9 mg/dL (0.3-1.2); Blood Urea Nitrogen 12 mg/dL (9-23); Calcium 9.5 mg/dL (8.3-10.6); Calcium (Corrected) 9.5 mg/dL (8.5-10.1); Carbon Dioxide 29.3 mMol/L (20.0-31.0); Chloride 102 mMol/L (98-107); Creatinine (Component) 1.0 mg/dL (0.6-1.3); Estimated Creatinine Clearance 74.0 mL/min (>60); Globulin 3.0 gm/dL (2.3-3.5); Glucose 140 mg/dL (74-106); Osmolality,Calculated 282 (275-295); Potassium 3.8 mMol/L (3.4-5.1); Sodium 141 mMol/L (136-145); Total Protein 7.5 gm/dL (5.7-8.2); eGFR > 60 See Note
--- NOTE | 2025-04-15 14:52 | SUR.PREOP ---
Pt notified to come in at 1030 tomorrow.
[2025-04-16] VITALS (9 sets, daily range): BP systolic 132–159; BP diastolic 92–99; PULSE 66–74; RESP 12–20; TEMP 36.2–36.6; O2SAT 97–100; BMI 29.8
--- NOTE | 2025-04-16 10:00 | XR_ITS ---
Examination: AP chest single view Technique : AP portable supine chest single view Date and time: April 16, 2025 0950 hours INDICATIONS: Port-A-Cath insertion FINDINGS: Port-A-Cath tip SVC satisfactory position, no pneumothorax IMPRESSION: Port-A-Cath tip SVC satisfactory position
--- NOTE | 2025-04-16 11:02 | PD.SUROPNT ---
Date of Procedure 04/16/25 Pre Op Diagnosis Compression of vein History of colon cancer Post Op Diagnosis Compression of vein History of colon cancer Procedure Port-A-Cath placement in right internal jugular vein Findings No evidence of pneumothorax, tip of the catheter in superior vena cava Procedure Description Patient brought into the operating room in supine position. After administration of general tracheal anesthesia, patient's right upper chest and neck prepped and draped in standard surgical manner. After administration of local anesthesia, right subclavian vein was cannulated in first attempt. The guidewire was placed, however the guidewire was going into internal jugular instead of going down, multiple attempts were made however I was unable to advance the guidewire towards the heart. I then decided to access the internal jugular vein. Internal jugular vein was cannulated and guidewire was placed. An incision was made in right upper chest for placement of the port. Using a tunneler a tunnel was made from the incision to the insertion site of the guidewire. Dilator and introducer sheath placed over the guidewire, the guidewire and the dilator were removed. The catheter was placed through the introducer sheath and the sheath was removed. The catheter was cut to an appropriate length and connected to the port. The port was secured in the pocket that was created with 2-0 Prolene in 3 quadrants. The placement of the catheter was confirmed with an x-ray without evidence of pneumothorax. The catheter was flushed with heparinized saline. Blood was being aspirated easily. Subcutaneous tissue closed with interrupted sutures using 2-0 Vicryl and incision was closed with 4-0 Monocryl in subcuticular fashion. Dermabond and pressure dressings applied. Patient tolerated the procedure well. He was extubated, breathing spontaneously and without difficulty and was transferred to postanesthesia care in stable condition. Instruments, needles and sponge counts were reported to be correct x 2. Anesthesia GETA and local Pathology / specimen None Estimated Blood Loss 5 Condition Stable Disposition PACU Surgeon Beau Hardwick MD Surgical Staff Operation Date: 04/16/25 10:30 Case Staff Anesthesiologist: Barrie Arriaza
--- NOTE | 2025-04-16 11:29 | SUR.PHASEI ---
1103: Pt received in [facility] via gurney. Report from Kp GALVEZ and Dr. Charles. Pt obtunded. Oral airway in place. Resp even, unlabored. VS stable. Dressing to right upper chest dry, clean, intact. 1110: Pt arousable with eye opening. Oral airway removed. Resp even, unlabored. VS stable. Denies pain. 1130: Pt more awake, alert. Resp even, unlabored. VS stable. Dressing to right upper chest remains dry, clean, intact with no swelling, discoloration. Denies pain.
--- NOTE | 2025-04-16 13:06 | SUR.PHASEII ---
1150: Pt more awake, alert. Resp even, unlabored. VS stable. Dressing remains dry, clean, intact. Denies pain. Sitting up tolerating po fluids with no difficulty swallowing and no n/v. 1205: Pt fully awake, oriented x3. Pt assisted to restroom to void. Ambulation steady. 1222: Pt and stated understanding of discharge instructions. Pt discharged from [facility] in stable condition.
== END 2025-04-16 12:22 | disposition home or self-care (01) ==
PROVIDERS: Anesthesiology; PCP Family Medicine; Referring Provider Surgery; Visit Provider Surgery
PROC: (CPT 36561; principal; 2025-04-16 10:15)
DX: I87.1 Compression of vein (principal); Z85.038 Personal history of other malignant neoplasm of large intestine
CPT/HCPCS: 36561; 36415; 71046; 80053; 85025; A4649; C1788; J0131; J0690; J1100; J1644; J1885; J2250; J2405; J2704; J3490; J7050

== ENCOUNTER → 2025-05-02 | Outpatient (CLI) | payer OTHER, SELFPAY ==
--- NOTE | 2025-05-02 16:30 | XR_ITS ---
Examination: CT soft tissue neck, without intravenous contrast. 2-D coronal reconstructions. 2-D sagittal reconstructions. Date and time of exam :May 02, 2025 1635 hours INDICATIONS: Diagnosis malignant neoplasm sigmoid colon February 2025, difficulty swallowing 2 months. CTDI: vol (mGy):17.4 DLP: (mGycm):520 Technique: 1.25 mm axial sections of the neck of the obtained. Coronal and sagittal reconstructions have been obtained. Low dose protocols were performed. One or more of the following dose reduction techniques were used; automated exposure control, adjustment of the mA and/or KV according to patient size, use of iterative reconstruction technique. Findings: Maxillary antra are clear Symmetrical nasopharynx oropharynx No pathologic cervical lymphadenopathy Moderate calcification right carotid bifurcation The larynx appears normal Normal epiglottis No prevertebral soft tissue prominence Advanced degenerative disc disease C5-C6, C6-C7 7 mm left thyroid nodule, 20 mm left thyroid nodule IMPRESSION: No pathologic cervical lymphadenopathy Normal epiglottis Normal larynx Advanced degenerative disc disease C5-C6, C6-C7 Left thyromegaly, 7 mm 20 mm left thyroid nodules Consider standard fluoroscopically guided esophagram follow-up
== END | disposition home or self-care (01) ==
LOC: CCTX 15:27
PROVIDERS: PCP Family Medicine; Referring Provider Internal Medicine Hematology & Oncology; Visit Provider Internal Medicine Hematology & Oncology
DX: M50.322 Other cervical disc degeneration at C5-C6 level (principal); E04.2 Nontoxic multinodular goiter; C18.9 Malignant neoplasm of colon, unspecified; C18.7 Malignant neoplasm of sigmoid colon
CPT/HCPCS: 70490

== ENCOUNTER 2025-05-15 11:19 | Outpatient (RCR) | payer OTHER, SELFPAY ==
[2025-04-26 11:57] LABS: Basophils # (Auto) 0.0 Thou/mm3 (0.0-0.2); Basophils % (Auto) 1 % (0-2.5); Eosinophils # (Auto) 0.2 Thou/mm3 (0.0-0.5); Eosinophils % (Auto) 2 % (0-10); Hematocrit 38.2 % (41.0-53.0); Hemoglobin 12.7 g/dL (13.5-16.0); Immature Granulocytes Auto 0.08 Thou/mm3 (0.00-0.00); Lymphocytes # (Auto) 2.1 Thou/mm3 (1.0-4.8); Lymphocytes % (Auto) 25 % (10-50); Mean Corpuscular HGB Conc 33.2 g/dl (31.0-37.0); Mean Corpuscular Hemoglobin 31.0 pg (25.0-35.0); Mean Corpuscular Volume 93 fL (80-100); Monocytes # (Auto) 0.9 Thou/mm3 (0.0-0.8); Monocytes % (Auto) 10 % (0-12); Neutrophils # (Auto) 5.0 Thou/mm3 (1.8-7.7); Neutrophils % (Auto) 61 % (37-80); Nucleated Red Blood Cell # 0.00 Thou/mm3 (0.00-0.00); Nucleated Red Blood Cell % 0 /100 WBC (0); Platelet Count 234 Thou/mm3 (140-440); RDW Standard Deviation 44.2 fL (35.1-43.9); Red Blood Count 4.10 Miln/mm3 (4.50-5.90); White Blood Count 8.2 Thou/mm3 (3.8-10.6)
[2025-04-26 12:08] LABS: Alanine Aminotransferase 19 U/L (10-49); Albumin, Serum 4.3 gm/dL (3.4-4.8); Albumin/Globulin Ratio 1.4 (1.2-2.2); Alkaline Phosphatase 67 U/L (46-116); Anion Gap 11 (7-16); Aspartate Amino Transferase 24 U/L (0-34); BUN/Creatinine Ratio 17 Ratio (12-20); Bilirubin,Total 0.7 mg/dL (0.3-1.2); Blood Urea Nitrogen 17 mg/dL (9-23); Calcium 9.0 mg/dL (8.3-10.6); Calcium (Corrected) 9.0 mg/dL (8.5-10.1); Carbon Dioxide 25.8 mMol/L (20.0-31.0); Chloride 103 mMol/L (98-107); Creatinine (Component) 1.0 mg/dL (0.6-1.3); Globulin 3.0 gm/dL (2.3-3.5); Glucose 96 mg/dL (74-106); Osmolality,Calculated 280 (275-295); Potassium 3.7 mMol/L (3.4-5.1); Sodium 140 mMol/L (136-145); Total Protein 7.3 gm/dL (5.7-8.2); eGFR > 60 See Note
[2025-04-26 12:10] LABS: Carcinoembryonic Antigen 51.3 ng/mL (0.0-5.0)
--- NOTE | 2025-05-07 14:54 | CTCFLWUP_ITS ---
Patient: CARLOS STODDARD : 1960 Page 5 of 7 FOLLOW UP NOTE DATE OF SERVICE: 05/07/2025 NAME: CARLOS STODDARD ACCOUNT: [id number] : 1960 AGE: 64 INTERVAL HISTORY: Patient is doing well . Completed cycle 1 of treatment. Had nausea Need nausea medication Weight is stable - Omeprazole - Taken for ulcer in the stomach - No more heartburn, likely mild gastritis Review of Systems General: Positive for weight loss. Gastrointestinal: Negative for heartburn. ONCOLOGY HISTORY:?CloneBlock Oncology Hx? 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 MMR proficient Liver lesions CT chest with contrast (03/05/2024) showed multiple small pulmonary nodules suspicious for metastatic disease. Too small to biopsy. S/p sigmoid colectomy and end colostomy (03/01/2024). S/p colonoscopy biopsy on 02/13/2024 DATE OF DIAGNOSIS: 02/12/2022. STAGE/TNM: Stage III invasive adenocarcinoma of the rectosigmoid TREATMENT HISTORY: Care?Plan Start?Date Cycle Day Intent mFOLFOX-6?+?Bevacizumab?5?mg/kg 04/17/2024 1 14 Palliative FERRlecit?he 04/16/2024 1 7 Palliative FOLFIRI?+?Bevacizumab?5mg/kg 04/29/2025 1 14 Palliative HISTORY OF PRESENT ILLNESS: Carlos Stoddard is a 64-year-old ENG speaking male with history of intermittent constipation as well as pain in the suprapubic region for the last 8 to 12 weeks and occasional rectal bleeding for the last 8-12 I will see him back in the clinic in 2 weeks. 01/17/2024: Mr. Stoddard went to emergency room because of persistent abdominal pain. A CT scan of the abdomen and pelvis with IV contrast was done01/17/2024: Hemoglobin 13.4, MCV 86, WBC 12.4, ANC 8.9, platelets 483,000. 02/10/2024: CEA 29.4. 02/13/2024: Colonoscopy showed rectosigmoid mass which on biopsy proven as an invasive adenocarcinoma well-differentiated. 02/07/2025 Laboratory, Imaging, and Diagnostic Test Results - Sadaf test: Positive - Colonoscopy: - Polyp found and biopsied: benign - Endoscopy: - Small ulcer found in stomach and biopsied: negative - Last scan: - 29mm lesion in the right liver lobe 04/02/[address] scan IMPRESSION: 28 x 12 mm hypermetabolic activity in the left oropharynx, recommend MRI soft tissue neck follow-up to exclude true lesion in the left oropharynx 13 mm hypermetabolic pulmonary nodule left upper lobe compared to [address] chest October 22, 2024 3 mm pulmonary nodule left lower lobe compared to [address] chest October 22, 2024 39 mm lateral right lobe liver lesion New 12 mm medial right lobe liver lesion New 8 mm posterior right lobe liver lesion 04/02/2025IMPRESSION: Enhancing 18 x 22 mm right lobe liver lesion most consistent with hepatic metastasis, this lesion is amenable to CT-guided percutaneous biopsy as clinically warranted 10 mm left lateral para-aortic lymph node, not visualized on the CT abdomen October 22, 2024 OTHER MEDICAL HISTORY/CONDITIONS: Invasive adenocarcinoma redtosigmoid colon - 02/13/24 HPylori positive - 02/13/24 Esophogeal ulcers Gastritis BPH Alcohol abuse Left knee surgery - 30 yrs ago Tonsillectomy - age 7 FAMILY HISTORY: Sibling: Brother - Kaposi's Sarcoma-dx age 22; Brother- liver - dx 67 SOCIAL HISTORY: 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 Tobacco?Use:?Denies ETOH Use:?Quit 3 months ago - 12pk / daily and whiskey x 40 yrs Drug?Note:?Denies Social?History?Note:?Lives?with? MEDICATIONS: 1. docusate sodium - 100 mg 1 tab As directed 2. hydrocodone-acetaminophen - 5-325 mg 1 tab every 6 hours for 30 Days 3. Lonsurf - 20-8.19 mg 3 tab twice a day 4. losartan - 50 mg 1 tab Daily 5. omeprazole - 40 mg 1 Capsule Daily 6. ondansetron - 8 mg 1 tab 1 tab every 8 hrs as needed for nausea 7. tamsulosin - 0.4 mg 1 Capsule Daily?Palabra Meds? Medications Last Reconciled by Anjali Ponce MD on 05/07/2025 ALLERGIES: Morphine sulfate REVIEW OF SYSTEMS: A complete 14-point review of systems was performed and is negative except as noted in interval history. PHYSICAL EXAMINATION:?CloneBlock PE? VITAL SIGNS: Temperature?98, B/P?165/107, Oxygen?Saturation?96% Weight?188?lbs (Change?since?05/01/25:?0.6?lbs) PAIN: 0 - No pain ECOG Performance Status: 0 - Asymptomatic and fully active GENERAL APPEARANCE: Appears well, in no apparent distress, appropriately interactive. HEENT: Normocephalic, no temporal wasting, normal conjunctiva, no scleral icterus, normal hearing, lips without lesions, neck normal range of motion. CARDIOVASCULAR: Not assessed. PULMONARY: Normal respiratory effort, no respiratory distress or use of accessory muscles, speaking in full sentences, no tachypnea. EXTREMITIES: No pedal edema or cyanosis. SKIN: Normal skin appearance. NEUROLOGIC: Alert and oriented x4. PSHYCHIATRIC: Appropriate affect, mood normal, behavior normal, intact thought and speech. LABORATORY DATA: I have personally reviewed and interpreted each of the patient?s relevant lab tests, abnormal findings are below: Date 04/15/25 04/26/25 ??WHITE?BLOOD?COUNT?(Thou/mm3) 5.9 8.2 ??RED?BLOOD?COUNT?(Miln/mm3) 3.98?L 4.10?L ??HEMOGLOBIN?(gm/dl) 12.7?L 12.7?L ??HEMATOCRIT?(%) 37.0?L 38.2?L ??PLATELET?COUNT?(Thou/mm3) 235 234 ??NEUTROPHILS?%,?AUTO?(%) 64 61 ??LYMPH?%,?AUTO?(%) 25 25 ??NEUTROPHILS,?AUTO?(Thou/mm3) 3.8 5.0 ??GLUCOSE,RANDOM?(mg/dL) ? 96 ??BLOOD?UREA?NITROGEN?(mg/dL) ? 17 ??CREATININE?(mg/dL) ? 1.00 ??SODIUM?(mmol/L) ? 140 ??POTASSIUM?(mmol/L) ? 3.7 ??CHLORIDE?(mmol/L) ? 103 ??CrCl?(CandG)?(ml/min) ? 86.81 ??AST/SGOT?(Unit/L) ? 24 ??ALT/SGPT?(Unit/L) ? 19 ??ALKALINE?PHOSPHATASE?(Unit/L) ? 67 ??BILIRUBIN,?TOTAL?(mg/dL) ? 0.7 ??PROTEIN?TOTAL?(gm/dl) ? 7.3 ??ALBUMIN,?SERUM?(gm/dl) ? 4.3 ??GLOBULIN?(gm/dl) ? 3.0 ??ALBUMIN/GLOBULIN?RATIO ? 1.4 ??CALCIUM,?SERUM?(mg/dL) ? 9.0 ??CALCIUM?SERUM?(CORRECTED)?(mg/dL) ? 9.0 ??CEA?(O*)?(ng/ml) ? 51.3?H ASSESSMENT/PLAN:?Kayla Boss Assessment/Plan? #1 stage IV, MMR proficient, sigmoid colon adenocarcinoma with pulmonary metastatic disease. MMR proficient. S/p sigmoid colectomy and end colostomy. CT scan showed multiple pulmonary nodules. Nodules have increased in size on PET CT scan Cancer was worsening FOLFIRI cycle 1 completed Cont chemotherapy RTC in 2 months ORDERS: Order # Description [id number] Follow Up Appointment [id number] CBC + Comprehensive Metabolic Panel + CEA [id number] Lab Appointment [id number] Infusion 5 Hours [id number] Infusion 1 Hour [id number] Discontinue CIV Pump [id number] Follow Up Appointment [id number] CBC + Comprehensive Metabolic Panel + CEA [id number] Lab Appointment [id number] Infusion 5 Hours [id number] Infusion 1 Hour [id number] Discontinue CIV Pump [id number] Follow Up Appointment [id number] CBC + Comprehensive Metabolic Panel + CEA [id number] Lab Appointment [id number] Infusion 5 Hours [id number] Infusion 1 Hour [id number] Discontinue CIV Pump [id number] Follow Up Appointment [id number] CBC + Comprehensive Metabolic Panel + CEA [id number] Lab Appointment [id number] Infusion 5 Hours [id number] Infusion 1 Hour [id number] Discontinue CIV Pump [id number] Follow Up Appointment [id number] CBC + Comprehensive Metabolic Panel + CEA [id number] Lab Appointment [id number] Infusion 5 Hours [id number] Infusion 1 Hour [id number] Discontinue CIV Pump [id number] Follow Up Appointment [id number] CBC + Comprehensive Metabolic Panel + CEA [id number] Lab Appointment [id number] Infusion 5 Hours [id number] Infusion 1 Hour [id number] Discontinue CIV Pump [id number] Follow Up Appointment [id number] CBC + Comprehensive Metabolic Panel + CEA [id number] Lab Appointment [id number] Infusion 5 Hours [id number] Infusion 1 Hour [id number] Discontinue CIV Pump [id number] Follow Up Appointment [id number] CBC + Comprehensive Metabolic Panel + CEA [id number] Lab Appointment [id number] Infusion 5 Hours [id number] Infusion 1 Hour [id number] Discontinue CIV Pump [id number] Follow Up Appointment [id number] CBC + Comprehensive Metabolic Panel + CEA [id number] Lab Appointment [id number] Infusion 5 Hours [id number] Infusion 1 Hour [id number] Discontinue CIV Pump [id number] Follow Up Appointment [id number] CBC + Comprehensive Metabolic Panel + CEA [id number] Lab Appointment [id number] Infusion 5 Hours [id number] Infusion 1 Hour [id number] Discontinue CIV Pump [id number] Follow Up Appointment [id number] CBC + Comprehensive Metabolic Panel + CEA [id number] Lab Appointment [id number] Infusion 5 Hours [id number] Infusion 1 Hour [id number] Discontinue CIV Pump [id number] Follow Up Appointment MD RETURN TO CLINIC: I reviewed the diagnosis, prognosis, and recommended treatment/procedure options with the patient (and/or their legal c s s representative), including the potential benefits, risks, side effects and alternative therapies. We also discussed the option of no treatment and the possibility of clinical trial participation, if applicable. All questions were addressed, and they demonstrated understanding. They provided informed consent to proceed with the proposed plan of care. BILLING AND COMPLIANCE: I reviewed external records from providers outside my specialty as summarized above. I spent a total of 50 minutes on this patient?s care on the day of their visit excluding time spent related to any billed procedures. This time includes time spent with the patient as well as time spent documenting in the medical record, reviewing patients records and tests, obtaining history, placing orders, communicating with other healthcare professionals, counseling the patient, family or caregiver, and/or care coordination for the diagnoses above. Electronically Signed by: Von Boss MD T: 2:52 PM CC: PCP: Matthew Dave Referring: Matthew Dave This document was completed utilizing speech recognition software. Grammatical errors, random word insertions, pronoun errors, and incomplete sentences are an occasional consequence of this system due to software limitations, ambient noise, and hardware issues. Any formal questions or concerns about the content, text or information contained within the body of this dictation should be directly addressed to the provider for clarification.
[2025-05-10 11:28] LABS: Collection Type, Urine Voided; RBC,Urine 0 /hpf (0-3); Squamous Epithelial Cell,Urine 0 /hpf (0-5)
[2025-05-10 11:37] LABS: Basophils # (Auto) 0.0 Thou/mm3 (0.0-0.2); Basophils % (Auto) 0 % (0-2.5); Eosinophils # (Auto) 0.1 Thou/mm3 (0.0-0.5); Eosinophils % (Auto) 2 % (0-10); Hematocrit 36.7 % (41.0-53.0); Hemoglobin 12.4 g/dL (13.5-16.0); Immature Granulocytes Auto 0.03 Thou/mm3 (0.00-0.00); Lymphocytes # (Auto) 1.9 Thou/mm3 (1.0-4.8); Lymphocytes % (Auto) 34 % (10-50); Mean Corpuscular HGB Conc 33.8 g/dl (31.0-37.0); Mean Corpuscular Hemoglobin 31.2 pg (25.0-35.0); Mean Corpuscular Volume 92 fL (80-100); Monocytes # (Auto) 0.7 Thou/mm3 (0.0-0.8); Monocytes % (Auto) 13 % (0-12); Neutrophils # (Auto) 2.8 Thou/mm3 (1.8-7.7); Neutrophils % (Auto) 50 % (37-80); Nucleated Red Blood Cell # 0.00 Thou/mm3 (0.00-0.00); Nucleated Red Blood Cell % 0 /100 WBC (0); Platelet Count 231 Thou/mm3 (140-440); RDW Standard Deviation 42.7 fL (35.1-43.9); Red Blood Count 3.98 Miln/mm3 (4.50-5.90); White Blood Count 5.5 Thou/mm3 (3.8-10.6)
[2025-05-10 11:45] LABS: Bilirubin,Urine Negative (Negative); Blood,Urine Negative (Negative); Clarity,Urine Clear (Clear/Hazy); Color,Urine Yellow (Lt Yel-Yel); Glucose, Urine Negative (Negative); Ketones,Urine Negative (Negative); Leukocyte Esterase,Urine Negative (Negative); Nitrite,Urine Negative (Negative); PH,Urine 5.5 (5.0-7.0); Protein,Urine Negative (Neg - Trace); Specific Gravity,Urine 1.024 (1.001-1.035); Urobilinogen,Urine Negative mg/dL (0.0-1.0); WBC,Urine < 1 /hpf (0-5)
[2025-05-10 11:53] LABS: Alanine Aminotransferase 26 U/L (10-49); Albumin, Serum 4.5 gm/dL (3.4-4.8); Albumin/Globulin Ratio 1.7 (1.2-2.2); Alkaline Phosphatase 62 U/L (46-116); Anion Gap 12 (7-16); Aspartate Amino Transferase 23 U/L (0-34); BUN/Creatinine Ratio 11 Ratio (12-20); Bilirubin,Total 0.7 mg/dL (0.3-1.2); Blood Urea Nitrogen 11 mg/dL (9-23); Calcium 9.7 mg/dL (8.3-10.6); Calcium (Corrected) 9.7 mg/dL (8.5-10.1); Carbon Dioxide 24.1 mMol/L (20.0-31.0); Carcinoembryonic Antigen 50.2 ng/mL (0.0-5.0); Chloride 104 mMol/L (98-107); Creatinine (Component) 1.0 mg/dL (0.6-1.3); Globulin 2.6 gm/dL (2.3-3.5); Glucose 95 mg/dL (74-106); Osmolality,Calculated 278 (275-295); Potassium 3.6 mMol/L (3.4-5.1); Sodium 140 mMol/L (136-145); Total Protein 7.1 gm/dL (5.7-8.2); eGFR > 60 See Note
== END 2025-05-26 23:59 | disposition home or self-care (01) ==
LOC: SCTC 11:19
PROVIDERS: PCP Family Medicine; Referring Provider Family Medicine; Visit Provider Internal Medicine Hematology & Oncology
DX: Z51.11 Encounter for antineoplastic chemotherapy (principal); C18.7 Malignant neoplasm of sigmoid colon; C78.02 Secondary malignant neoplasm of left lung; Z90.49 Acquired absence of other specified parts of digestive tract
CPT/HCPCS: 36591; 80053; 81001; 82378; 85025; 96367; 96368; 96375; 96411; 96413; 96415; 96416; 96417; 99212; A4216; J0461; J0640; J1100; J1453; J1642; J2405; J7040; J7050; J7060; J9190; J9206; Q5126; A9270; G0463

== ENCOUNTER 2025-06-14 10:32 | Outpatient (RCR) | payer OTHER, SELFPAY ==
[2025-05-28 12:53] LABS: Collection Type, Urine Voided; RBC,Urine 0 /hpf (0-3)
[2025-05-28 13:04] LABS: Basophils # (Auto) 0.0 Thou/mm3 (0.0-0.2); Basophils % (Auto) 1 % (0-2.5); Eosinophils # (Auto) 0.1 Thou/mm3 (0.0-0.5); Eosinophils % (Auto) 2 % (0-10); Hematocrit 37.4 % (41.0-53.0); Hemoglobin 12.8 g/dL (13.5-16.0); Immature Granulocytes Auto 0.04 Thou/mm3 (0.00-0.00); Lymphocytes # (Auto) 1.9 Thou/mm3 (1.0-4.8); Lymphocytes % (Auto) 46 % (10-50); Mean Corpuscular HGB Conc 34.2 g/dl (31.0-37.0); Mean Corpuscular Hemoglobin 31.1 pg (25.0-35.0); Mean Corpuscular Volume 91 fL (80-100); Monocytes # (Auto) 0.6 Thou/mm3 (0.0-0.8); Monocytes % (Auto) 14 % (0-12); Neutrophils # (Auto) 1.5 Thou/mm3 (1.8-7.7); Neutrophils % (Auto) 36 % (37-80); Nucleated Red Blood Cell # 0.00 Thou/mm3 (0.00-0.00); Nucleated Red Blood Cell % 0 /100 WBC (0); Platelet Count 173 Thou/mm3 (140-440); RDW Standard Deviation 43.1 fL (35.1-43.9); Red Blood Count 4.11 Miln/mm3 (4.50-5.90); White Blood Count 4.1 Thou/mm3 (3.8-10.6)
[2025-05-28 13:11] LABS: Bilirubin,Urine Negative (Negative); Blood,Urine Negative (Negative); Clarity,Urine Clear (Clear/Hazy); Color,Urine Lt-Yellow (Lt Yel-Yel); Glucose, Urine Negative (Negative); Ketones,Urine Negative (Negative); Leukocyte Esterase,Urine Negative (Negative); Nitrite,Urine Negative (Negative); PH,Urine 5.5 (5.0-7.0); Protein,Urine Negative (Neg - Trace); Specific Gravity,Urine 1.012 (1.001-1.035); Squamous Epithelial Cell,Urine < 1 /hpf (0-5); Urobilinogen,Urine Negative mg/dL (0.0-1.0); WBC,Urine < 1 /hpf (0-5)
[2025-05-28 13:26] LABS: Carcinoembryonic Antigen 44.2 ng/mL (0.0-5.0)
[2025-05-28 13:28] LABS: Alanine Aminotransferase 18 U/L (10-49); Albumin, Serum 4.2 gm/dL (3.4-4.8); Albumin/Globulin Ratio 1.8 (1.2-2.2); Alkaline Phosphatase 65 U/L (46-116); Anion Gap 10 (7-16); Aspartate Amino Transferase 20 U/L (0-34); BUN/Creatinine Ratio 9 Ratio (12-20); Bilirubin,Total 0.5 mg/dL (0.3-1.2); Blood Urea Nitrogen 9 mg/dL (9-23); Calcium 9.7 mg/dL (8.3-10.6); Calcium (Corrected) 9.7 mg/dL (8.5-10.1); Carbon Dioxide 25.4 mMol/L (20.0-31.0); Chloride 105 mMol/L (98-107); Creatinine (Component) 1.0 mg/dL (0.6-1.3); Globulin 2.4 gm/dL (2.3-3.5); Glucose 96 mg/dL (74-106); Osmolality,Calculated 278 (275-295); Potassium 3.7 mMol/L (3.4-5.1); Sodium 140 mMol/L (136-145); Total Protein 6.6 gm/dL (5.7-8.2); eGFR > 60 See Note
[2025-06-12 08:15] LABS: Collection Type, Urine Voided; Squamous Epithelial Cell,Urine 0 /hpf (0-5)
[2025-06-12 08:31] LABS: Basophils # (Auto) 0.0 Thou/mm3 (0.0-0.2); Basophils % (Auto) 1 % (0-2.5); Eosinophils # (Auto) 0.1 Thou/mm3 (0.0-0.5); Eosinophils % (Auto) 2 % (0-10); Hematocrit 38.2 % (41.0-53.0); Hemoglobin 13.0 g/dL (13.5-16.0); Immature Granulocytes Auto 0.01 Thou/mm3 (0.00-0.00); Lymphocytes # (Auto) 1.6 Thou/mm3 (1.0-4.8); Lymphocytes % (Auto) 39 % (10-50); Mean Corpuscular HGB Conc 34.0 g/dl (31.0-37.0); Mean Corpuscular Hemoglobin 31.6 pg (25.0-35.0); Mean Corpuscular Volume 93 fL (80-100); Monocytes # (Auto) 0.4 Thou/mm3 (0.0-0.8); Monocytes % (Auto) 10 % (0-12); Neutrophils # (Auto) 2.0 Thou/mm3 (1.8-7.7); Neutrophils % (Auto) 48 % (37-80); Nucleated Red Blood Cell # 0.00 Thou/mm3 (0.00-0.00); Nucleated Red Blood Cell % 0 /100 WBC (0); Platelet Count 184 Thou/mm3 (140-440); RDW Standard Deviation 45.3 fL (35.1-43.9); Red Blood Count 4.11 Miln/mm3 (4.50-5.90); White Blood Count 4.1 Thou/mm3 (3.8-10.6)
[2025-06-12 08:36] LABS: Alanine Aminotransferase 25 U/L (10-49); Albumin, Serum 4.2 gm/dL (3.4-4.8); Albumin/Globulin Ratio 1.8 (1.2-2.2); Alkaline Phosphatase 66 U/L (46-116); Anion Gap 12 (7-16); Aspartate Amino Transferase 18 U/L (0-34); BUN/Creatinine Ratio 13 Ratio (12-20); Bilirubin,Total 0.8 mg/dL (0.3-1.2); Blood Urea Nitrogen 14 mg/dL (9-23); Calcium 9.5 mg/dL (8.3-10.6); Calcium (Corrected) 9.5 mg/dL (8.5-10.1); Carbon Dioxide 23.9 mMol/L (20.0-31.0); Chloride 104 mMol/L (98-107); Creatinine (Component) 1.1 mg/dL (0.6-1.3); Globulin 2.4 gm/dL (2.3-3.5); Glucose 169 mg/dL (74-106); Osmolality,Calculated 283 (275-295); Potassium 3.8 mMol/L (3.4-5.1); Sodium 140 mMol/L (136-145); Total Protein 6.6 gm/dL (5.7-8.2); eGFR > 60 See Note
[2025-06-12 08:42] LABS: Carcinoembryonic Antigen 33.7 ng/mL (0.0-5.0)
[2025-06-12 08:59] LABS: Bilirubin,Urine Negative (Negative); Blood,Urine Negative (Negative); Clarity,Urine Clear (Clear/Hazy); Color,Urine Lt-Yellow (Lt Yel-Yel); Glucose, Urine Negative (Negative); Hyaline Casts,Urine < 1 /hpf (0-1); Ketones,Urine Negative (Negative); Leukocyte Esterase,Urine Negative (Negative); Nitrite,Urine Negative (Negative); PH,Urine 5.5 (5.0-7.0); Protein,Urine Negative (Neg - Trace); RBC,Urine < 1 /hpf (0-3); Specific Gravity,Urine 1.023 (1.001-1.035); Urobilinogen,Urine Negative mg/dL (0.0-1.0); WBC,Urine < 1 /hpf (0-5)
--- NOTE | 2025-06-13 12:57 | CTCFLWUP_ITS ---
Patient: CARLOS STODDARD : 1960 Page 4 of 6 FOLLOW UP NOTE DATE OF SERVICE: 06/13/2025 NAME: CARLOS STODDARD ACCOUNT: [id number] : 1960 AGE: 64 INTERVAL HISTORY: Patient is 64-year-old male who had colon cancer and was treated with FOLFOX plus bevacizumab in adjuvant setting. Patient underwent takedown of the colon and was noted to have progression in the liver. As patient's progression happened less than 6 months from FOLFOX, patient was started on FOLFIRI. Patient is tolerating FOLFIRI better. Have no known side effects at this time. 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 ONCOLOGY HISTORY:?[facility]Block Oncology Hx? 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 MMR proficient Liver lesions CT chest with contrast (03/05/2024) showed multiple small pulmonary nodules suspicious for metastatic disease. Too small to biopsy. 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 s/p sigmoid colectomy and end colostomy (03/01/2024). S/p colonoscopy biopsy on 02/13/2024 DATE OF DIAGNOSIS: 02/12/2022. STAGE/TNM: Stage III invasive adenocarcinoma of the rectosigmoid TREATMENT HISTORY: Care?Plan Start?Date Cycle Day Intent mFOLFOX-6?+?Bevacizumab?5?mg/kg 04/17/2024 1 14 Palliative FERRlecit?he 04/16/2024 1 7 Palliative FOLFIRI?+?Bevacizumab?5mg/kg 04/29/2025 1 14 Palliative HISTORY OF PRESENT ILLNESS: Carlos Stoddard is a 64-year-old ENG speaking male with history of intermittent constipation as well as pain in the suprapubic region for the last 8 to 12 weeks and occasional rectal bleeding for the last 8-12 I will see him back in the clinic in 2 weeks. 01/17/2024: Mr. Stoddard went to emergency room because of persistent abdominal pain. A CT scan of the abdomen and pelvis with IV contrast was done01/17/2024: Hemoglobin 13.4, MCV 86, WBC 12.4, ANC 8.9, platelets 483,000. 02/10/2024: CEA 29.4. 02/13/2024: Colonoscopy showed rectosigmoid mass which on biopsy proven as an invasive adenocarcinoma well-differentiated. 02/07/2025 Laboratory, Imaging, and Diagnostic Test Results - Sadaf test: Positive - Colonoscopy: - Polyp found and biopsied: benign - Endoscopy: - Small ulcer found in stomach and biopsied: negative - Last scan: - 29mm lesion in the right liver lobe 04/02/[address] scan IMPRESSION: 28 x 12 mm hypermetabolic activity in the left oropharynx, recommend MRI soft tissue neck follow-up to exclude true lesion in the left oropharynx 13 mm hypermetabolic pulmonary nodule left upper lobe compared to [address] chest October 22, 2024 3 mm pulmonary nodule left lower lobe compared to [address] chest October 22, 2024 39 mm lateral right lobe liver lesion New 12 mm medial right lobe liver lesion New 8 mm posterior right lobe liver lesion 04/02/2025IMPRESSION: Enhancing 18 x 22 mm right lobe liver lesion most consistent with hepatic metastasis, this lesion is amenable to CT-guided percutaneous biopsy as clinically warranted 10 mm left lateral para-aortic lymph node, not visualized on the CT abdomen October 22, 2024 OTHER MEDICAL HISTORY/CONDITIONS: Invasive adenocarcinoma redtosigmoid colon - 02/13/24 HPylori positive - 02/13/24 Esophogeal ulcers Gastritis BPH Alcohol abuse Left knee surgery - 30 yrs ago Tonsillectomy - age 7 FAMILY HISTORY: Sibling: Brother - Kaposi's Sarcoma-dx age 22; Brother- liver - dx 67 SOCIAL HISTORY: 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 Tobacco?Use:?Denies ETOH Use:?Quit 3 months ago - 12pk / daily and 5th whiskey x 40 yrs Drug?Note:?Denies Social?History?Note:?Lives?with? MEDICATIONS: 1. docusate sodium - 100 mg 1 tab As directed 2. hydrocodone-acetaminophen - 5-325 mg 1 tab every 6 hours for 30 Days 3. losartan - 50 mg 1 tab Daily 4. omeprazole - 40 mg 1 Capsule Daily 5. ondansetron - 16 mg 1 tab Three times a day 6. tamsulosin - 0.4 mg 1 Capsule Daily?Palabra Meds? Medications Last Reconciled by Anjali Ross MA on 06/13/2025 ALLERGIES: Morphine sulfate REVIEW OF SYSTEMS: A complete 14-point review of systems was performed and is negative except as noted in interval history. PHYSICAL EXAMINATION:?CloneBlock PE? VITAL SIGNS: PAIN: 0 - No pain ECOG Performance Status: 0 - Asymptomatic and fully active GENERAL APPEARANCE: Appears well, in no apparent distress, appropriately interactive. HEENT: Normocephalic, no temporal wasting, normal conjunctiva, no scleral icterus, normal hearing, lips without lesions, neck normal range of motion. CARDIOVASCULAR: Not assessed. PULMONARY: Normal respiratory effort, no respiratory distress or use of accessory muscles, speaking in full sentences, no tachypnea. EXTREMITIES: No pedal edema or cyanosis. SKIN: Normal skin appearance. NEUROLOGIC: Alert and oriented x4. PSHYCHIATRIC: Appropriate affect, mood normal, behavior normal, intact thought and speech. LABORATORY DATA: I have personally reviewed and interpreted each of the patient?s relevant lab tests, abnormal findings are below: Date 05/28/25 06/12/25 ??WHITE?BLOOD?COUNT?(Thou/mm3) ? 4.1 ??RED?BLOOD?COUNT?(Miln/mm3) ? 4.11?L ??HEMOGLOBIN?(gm/dl) ? 13.0?L ??HEMATOCRIT?(%) ? 38.2?L ??PLATELET?COUNT?(Thou/mm3) ? 184 ??NEUTROPHILS?%,?AUTO?(%) ? 48 ??LYMPH?%,?AUTO?(%) ? 39 ??NEUTROPHILS,?AUTO?(Thou/mm3) ? 2.0 ??GLUCOSE,RANDOM?(mg/dL) ? 169?H ??BLOOD?UREA?NITROGEN?(mg/dL) ? 14 ??CREATININE?(mg/dL) ? 1.10 ??SODIUM?(mmol/L) ? 140 ??POTASSIUM?(mmol/L) ? 3.8 ??CHLORIDE?(mmol/L) ? 104 ??CrCl?(CandG)?(ml/min) ? 80.61 ??AST/SGOT?(Unit/L) ? 18 ??ALT/SGPT?(Unit/L) ? 25 ??ALKALINE?PHOSPHATASE?(Unit/L) ? 66 ??BILIRUBIN,?TOTAL?(mg/dL) ? 0.8 ??PROTEIN?TOTAL?(gm/dl) ? 6.6 ??ALBUMIN,?SERUM?(gm/dl) ? 4.2 ??GLOBULIN?(gm/dl) ? 2.4 ??ALBUMIN/GLOBULIN?RATIO ? 1.8 ??CALCIUM,?SERUM?(mg/dL) ? 9.5 ??CALCIUM?SERUM?(CORRECTED)?(mg/dL) ? 9.5 ??CEA?(O*)?(ng/ml) 44.2?H 33.7?H ASSESSMENT/PLAN:?Kayla Boss Assessment/Plan? #1 stage IV, MMR proficient, sigmoid colon adenocarcinoma with pulmonary metastatic disease. MMR proficient. S/p sigmoid colectomy and end colostomy. CT scan showed multiple pulmonary nodules has been stable. Patient have a progression of cancer in the liver Patient is responding well to the chemotherapy as he is in naterra CT DNA level is low also CEA has improved Will continue current therapy I would like patient to be considered for metastatic ectomy at [place] Patient advised to follow-up with hepatobiliary surgeon Patient was seen at [facility] and advised to get CT scan high-resolution Will continue therapy RTC in 2 months ORDERS: Order # Description [id number] Infusion 1 Hour [id number] CEA [id number] MD Follow Up 2 Months [id number] Discontinue CIV Pump [id number] Follow Up Appointment [id number] Infusion 5 Hours [id number] CBC + Comprehensive Metabolic Panel + CEA [id number] Lab Appointment [id number] Infusion 1 Hour [id number] Discontinue CIV Pump [id number] Follow Up Appointment [id number] CBC + Comprehensive Metabolic Panel + CEA [id number] Lab Appointment [id number] Infusion 5 Hours [id number] Infusion 1 Hour [id number] Discontinue CIV Pump [id number] Follow Up Appointment [id number] CBC + Comprehensive Metabolic Panel + CEA [id number] Lab Appointment [id number] Infusion 5 Hours [id number] Infusion 1 Hour [id number] Discontinue CIV Pump [id number] Follow Up Appointment [id number] CBC + Comprehensive Metabolic Panel + CEA [id number] Lab Appointment [id number] Infusion 5 Hours [id number] Infusion 1 Hour [id number] Discontinue CIV Pump [id number] Follow Up Appointment [id number] CBC + Comprehensive Metabolic Panel + CEA [id number] Lab Appointment [id number] Infusion 5 Hours [id number] Infusion 1 Hour [id number] Discontinue CIV Pump [id number] Follow Up Appointment [id number] CBC + Comprehensive Metabolic Panel + CEA [id number] Lab Appointment [id number] Infusion 5 Hours [id number] Infusion 1 Hour [id number] Discontinue CIV Pump [id number] Follow Up Appointment [id number] CBC + Comprehensive Metabolic Panel + CEA [id number] Lab Appointment [id number] Infusion 5 Hours [id number] Infusion 1 Hour [id number] Discontinue CIV Pump [id number] Follow Up Appointment [id number] CBC + Comprehensive Metabolic Panel + CEA [id number] Lab Appointment [id number] Infusion 5 Hours [id number] Infusion 1 Hour [id number] Discontinue CIV Pump [id number] Follow Up Appointment RETURN TO CLINIC: I reviewed the diagnosis, prognosis, and recommended treatment/procedure options with the patient (and/or their legal senior customer service representative), including the potential benefits, risks, side effects and alternative therapies. We also discussed the option of no treatment and the possibility of clinical trial participation, if applicable. All questions were addressed, and they demonstrated understanding. They provided informed consent to proceed with the proposed plan of care. BILLING AND COMPLIANCE: I reviewed external records from providers outside my specialty as summarized above. I spent a total of 50 minutes on this patient?s care on the day of their visit excluding time spent related to any billed procedures. This time includes time spent with the patient as well as time spent documenting in the medical record, reviewing patients records and tests, obtaining history, placing orders, communicating with other healthcare professionals, counseling the patient, family or caregiver, and/or care coordination for the diagnoses above. Electronically Signed by: Von Boss MD T: 12:55 PM CC: PCP: Matthew Dave Referring: Matthew Dave This document was completed utilizing speech recognition software. Grammatical errors, random word insertions, pronoun errors, and incomplete sentences are an occasional consequence of this system due to software limitations, ambient noise, and hardware issues. Any formal questions or concerns about the content, text or information contained within the body of this dictation should be directly addressed to the provider for clarification.
== END 2025-06-25 23:59 | disposition home or self-care (01) ==
LOC: SCTC 10:32
PROVIDERS: PCP Family Medicine; Referring Provider Family Medicine; Visit Provider Internal Medicine Hematology & Oncology
DX: Z51.11 Encounter for antineoplastic chemotherapy (principal); C18.7 Malignant neoplasm of sigmoid colon; C78.02 Secondary malignant neoplasm of left lung; C78.7 Secondary malignant neoplasm of liver and intrahepatic bile duct; Z90.49 Acquired absence of other specified parts of digestive tract; Z93.3 Colostomy status
CPT/HCPCS: 36591; 80053; 81001; 82378; 85025; 96367; 96368; 96375; 96409; 96411; 96413; 96415; 96416; 96417; 99212; A4216; J0461; J0640; J1100; J1200; J1453; J1642; J2405; J3490; J7040; J7050; J7060; J9190; J9206; Q5126; G0463

== ENCOUNTER 2025-07-26 09:09 | Outpatient (RCR) | payer OTHER, SELFPAY ==
[2025-06-26 09:15] LABS: Collection Type, Urine Voided; Squamous Epithelial Cell,Urine 0 /hpf (0-5)
[2025-06-26 09:23] LABS: Basophils # (Auto) 0.0 Thou/mm3 (0.0-0.2); Basophils % (Auto) 1 % (0-2.5); Eosinophils # (Auto) 0.2 Thou/mm3 (0.0-0.5); Eosinophils % (Auto) 4 % (0-10); Hematocrit 37.0 % (41.0-53.0); Hemoglobin 12.7 g/dL (13.5-16.0); Immature Granulocytes Auto 0.01 Thou/mm3 (0.00-0.00); Lymphocytes # (Auto) 1.9 Thou/mm3 (1.0-4.8); Lymphocytes % (Auto) 42 % (10-50); Mean Corpuscular HGB Conc 34.3 g/dl (31.0-37.0); Mean Corpuscular Hemoglobin 31.0 pg (25.0-35.0); Mean Corpuscular Volume 90 fL (80-100); Monocytes # (Auto) 0.6 Thou/mm3 (0.0-0.8); Monocytes % (Auto) 13 % (0-12); Neutrophils # (Auto) 1.8 Thou/mm3 (1.8-7.7); Neutrophils % (Auto) 40 % (37-80); Nucleated Red Blood Cell # 0.00 Thou/mm3 (0.00-0.00); Nucleated Red Blood Cell % 0 /100 WBC (0); Platelet Count 165 Thou/mm3 (140-440); RDW Standard Deviation 44.2 fL (35.1-43.9); Red Blood Count 4.10 Miln/mm3 (4.50-5.90); White Blood Count 4.6 Thou/mm3 (3.8-10.6)
[2025-06-26 09:26] LABS: Bilirubin,Urine Negative (Negative); Blood,Urine Negative (Negative); Clarity,Urine Clear (Clear/Hazy); Color,Urine Lt-Yellow (Lt Yel-Yel); Glucose, Urine Negative (Negative); Ketones,Urine Negative (Negative); Leukocyte Esterase,Urine Negative (Negative); Nitrite,Urine Negative (Negative); PH,Urine 5.5 (5.0-7.0); Protein,Urine Negative (Neg - Trace); RBC,Urine < 1 /hpf (0-3); Specific Gravity,Urine 1.022 (1.001-1.035); Urobilinogen,Urine Negative mg/dL (0.0-1.0); WBC,Urine 1 /hpf (0-5)
[2025-06-26 09:38] LABS: Alanine Aminotransferase 23 U/L (10-49); Albumin, Serum 4.4 gm/dL (3.4-4.8); Albumin/Globulin Ratio 1.8 (1.2-2.2); Alkaline Phosphatase 65 U/L (46-116); Anion Gap 10 (7-16); Aspartate Amino Transferase 20 U/L (0-34); BUN/Creatinine Ratio 14 Ratio (12-20); Bilirubin,Total 1.1 mg/dL (0.3-1.2); Blood Urea Nitrogen 15 mg/dL (9-23); Calcium 10.2 mg/dL (8.3-10.6); Calcium (Corrected) 10.2 mg/dL (8.5-10.1); Carbon Dioxide 26.2 mMol/L (20.0-31.0); Chloride 105 mMol/L (98-107); Creatinine (Component) 1.1 mg/dL (0.6-1.3); Globulin 2.4 gm/dL (2.3-3.5); Glucose 113 mg/dL (74-106); Osmolality,Calculated 283 (275-295); Potassium 4.2 mMol/L (3.4-5.1); Sodium 141 mMol/L (136-145); Total Protein 6.8 gm/dL (5.7-8.2); eGFR > 60 See Note
[2025-06-26 10:03] LABS: Carcinoembryonic Antigen 26.8 ng/mL (0.0-5.0)
[2025-07-10 08:15] LABS: Basophils # (Auto) 0.0 Thou/mm3 (0.0-0.2); Basophils % (Auto) 1 % (0-2.5); Eosinophils # (Auto) 0.1 Thou/mm3 (0.0-0.5); Eosinophils % (Auto) 2 % (0-10); Hematocrit 34.9 % (41.0-53.0); Hemoglobin 12.3 g/dL (13.5-16.0); Immature Granulocytes Auto 0.01 Thou/mm3 (0.00-0.00); Lymphocytes # (Auto) 1.6 Thou/mm3 (1.0-4.8); Lymphocytes % (Auto) 40 % (10-50); Mean Corpuscular HGB Conc 35.2 g/dl (31.0-37.0); Mean Corpuscular Hemoglobin 31.9 pg (25.0-35.0); Mean Corpuscular Volume 90 fL (80-100); Monocytes # (Auto) 0.5 Thou/mm3 (0.0-0.8); Monocytes % (Auto) 12 % (0-12); Neutrophils # (Auto) 1.9 Thou/mm3 (1.8-7.7); Neutrophils % (Auto) 46 % (37-80); Nucleated Red Blood Cell # 0.00 Thou/mm3 (0.00-0.00); Nucleated Red Blood Cell % 0 /100 WBC (0); Platelet Count 137 Thou/mm3 (140-440); RDW Standard Deviation 44.8 fL (35.1-43.9); Red Blood Count 3.86 Miln/mm3 (4.50-5.90); White Blood Count 4.0 Thou/mm3 (3.8-10.6)
[2025-07-10 08:35] LABS: Alanine Aminotransferase 28 U/L (10-49); Albumin, Serum 4.3 gm/dL (3.4-4.8); Albumin/Globulin Ratio 1.9 (1.2-2.2); Alkaline Phosphatase 73 U/L (46-116); Anion Gap 11 (7-16); Aspartate Amino Transferase 27 U/L (0-34); BUN/Creatinine Ratio 15 Ratio (12-20); Bilirubin,Total 0.9 mg/dL (0.3-1.2); Blood Urea Nitrogen 15 mg/dL (9-23); Calcium 9.0 mg/dL (8.3-10.6); Calcium (Corrected) 9.0 mg/dL (8.5-10.1); Carbon Dioxide 23.7 mMol/L (20.0-31.0); Chloride 104 mMol/L (98-107); Creatinine (Component) 1.0 mg/dL (0.6-1.3); Globulin 2.3 gm/dL (2.3-3.5); Glucose 158 mg/dL (74-106); Osmolality,Calculated 281 (275-295); Potassium 3.7 mMol/L (3.4-5.1); Sodium 139 mMol/L (136-145); Total Protein 6.6 gm/dL (5.7-8.2); eGFR > 60 See Note
[2025-07-10 08:37] LABS: Carcinoembryonic Antigen 25.7 ng/mL (0.0-5.0)
[2025-07-10 09:34] LABS: Collection Type, Urine Voided; Squamous Epithelial Cell,Urine 0 /hpf (0-5)
[2025-07-10 09:47] LABS: Bacteria,Urine Rare; Bilirubin,Urine Negative (Negative); Blood,Urine Negative (Negative); Clarity,Urine Clear (Clear/Hazy); Color,Urine Lt-Yellow (Lt Yel-Yel); Glucose, Urine Negative (Negative); Ketones,Urine Negative (Negative); Leukocyte Esterase,Urine Negative (Negative); Nitrite,Urine Negative (Negative); PH,Urine 6.0 (5.0-7.0); Protein,Urine Negative (Neg - Trace); RBC,Urine < 1 /hpf (0-3); Specific Gravity,Urine 1.026 (1.001-1.035); Urobilinogen,Urine Negative mg/dL (0.0-1.0); WBC,Urine 1 /hpf (0-5)
[2025-07-24 08:00] LABS: Collection Type, Urine Clean Catch; Squamous Epithelial Cell,Urine 0 /hpf (0-5)
[2025-07-24 08:07] LABS: Basophils # (Auto) 0.0 Thou/mm3 (0.0-0.2); Basophils % (Auto) 1 % (0-2.5); Eosinophils # (Auto) 0.1 Thou/mm3 (0.0-0.5); Eosinophils % (Auto) 2 % (0-10); Hematocrit 33.2 % (41.0-53.0); Hemoglobin 11.6 g/dL (13.5-16.0); Immature Granulocytes Auto 0.05 Thou/mm3 (0.00-0.00); Lymphocytes # (Auto) 1.4 Thou/mm3 (1.0-4.8); Lymphocytes % (Auto) 41 % (10-50); Mean Corpuscular HGB Conc 34.9 g/dl (31.0-37.0); Mean Corpuscular Hemoglobin 31.9 pg (25.0-35.0); Mean Corpuscular Volume 91 fL (80-100); Monocytes # (Auto) 0.6 Thou/mm3 (0.0-0.8); Monocytes % (Auto) 17 % (0-12); Neutrophils # (Auto) 1.3 Thou/mm3 (1.8-7.7); Neutrophils % (Auto) 38 % (37-80); Nucleated Red Blood Cell # 0.00 Thou/mm3 (0.00-0.00); Nucleated Red Blood Cell % 0 /100 WBC (0); Platelet Count 233 Thou/mm3 (140-440); RDW Standard Deviation 46.4 fL (35.1-43.9); Red Blood Count 3.64 Miln/mm3 (4.50-5.90); White Blood Count 3.4 Thou/mm3 (3.8-10.6)
[2025-07-24 08:12] LABS: Bilirubin,Urine Negative (Negative); Blood,Urine Negative (Negative); Clarity,Urine Clear (Clear/Hazy); Color,Urine Yellow (Lt Yel-Yel); Culture Indicated,Urine Not Indicated; Glucose, Urine Negative (Negative); Ketones,Urine Negative (Negative); Leukocyte Esterase,Urine Negative (Negative); Nitrite,Urine Negative (Negative); PH,Urine 5.5 (5.0-7.0); Protein,Urine Negative (Neg - Trace); RBC,Urine < 1 /hpf (0-3); Specific Gravity,Urine 1.024 (1.001-1.035); Urobilinogen,Urine Negative mg/dL (0.0-1.0); WBC,Urine 1 /hpf (0-5)
[2025-07-24 08:24] LABS: Alanine Aminotransferase 35 U/L (10-49); Albumin, Serum 4.3 gm/dL (3.4-4.8); Albumin/Globulin Ratio 2.3 (1.2-2.2); Alkaline Phosphatase 79 U/L (46-116); Anion Gap 11 (7-16); Aspartate Amino Transferase 23 U/L (0-34); BUN/Creatinine Ratio 9 Ratio (12-20); Bilirubin,Total 0.5 mg/dL (0.3-1.2); Blood Urea Nitrogen 9 mg/dL (9-23); Calcium 8.9 mg/dL (8.3-10.6); Calcium (Corrected) 8.9 mg/dL (8.5-10.1); Carbon Dioxide 25.1 mMol/L (20.0-31.0); Chloride 107 mMol/L (98-107); Creatinine (Component) 1.0 mg/dL (0.6-1.3); Globulin 1.9 gm/dL (2.3-3.5); Glucose 119 mg/dL (74-106); Osmolality,Calculated 284 (275-295); Potassium 3.8 mMol/L (3.4-5.1); Sodium 143 mMol/L (136-145); Total Protein 6.2 gm/dL (5.7-8.2); eGFR > 60 See Note
[2025-07-24 08:26] LABS: Carcinoembryonic Antigen 16.2 ng/mL (0.0-5.0)
== END 2025-07-26 23:59 | disposition home or self-care (01) ==
LOC: SCTC 09:09
PROVIDERS: PCP Family Medicine; Referring Provider Family Medicine; Visit Provider Internal Medicine Hematology & Oncology
DX: Z51.11 Encounter for antineoplastic chemotherapy (principal); C18.7 Malignant neoplasm of sigmoid colon; C78.02 Secondary malignant neoplasm of left lung; C78.01 Secondary malignant neoplasm of right lung; C78.7 Secondary malignant neoplasm of liver and intrahepatic bile duct; Z90.49 Acquired absence of other specified parts of digestive tract; Z93.3 Colostomy status
CPT/HCPCS: 80053; 81001; 82378; 85025; 96367; 96368; 96372; 96375; 96411; 96413; 96415; 96416; 96417; A4216; J0461; J0640; J1100; J1434; J1642; J2405; J3490; J7040; J7050; J7060; J9190; J9206; Q5101; Q5126; A9270

== ENCOUNTER → 2025-07-31 | Outpatient (CLI) | payer OTHER, SELFPAY ==
[2025-07-31 09:22] LABS: Basophils # (Auto) 0.0 Thou/mm3 (0.0-0.2); Basophils % (Auto) 1 % (0-2.5); Eosinophils # (Auto) 0.1 Thou/mm3 (0.0-0.5); Eosinophils % (Auto) 2 % (0-10); Hematocrit 35.0 % (41.0-53.0); Hemoglobin 12.1 g/dL (13.5-16.0); Immature Granulocytes Auto 0.25 Thou/mm3 (0.00-0.00); Lymphocytes # (Auto) 1.9 Thou/mm3 (1.0-4.8); Lymphocytes % (Auto) 44 % (10-50); Mean Corpuscular HGB Conc 34.6 g/dl (31.0-37.0); Mean Corpuscular Hemoglobin 31.9 pg (25.0-35.0); Mean Corpuscular Volume 92 fL (80-100); Monocytes # (Auto) 0.5 Thou/mm3 (0.0-0.8); Monocytes % (Auto) 13 % (0-12); Neutrophils # (Auto) 1.5 Thou/mm3 (1.8-7.7); Neutrophils % (Auto) 35 % (37-80); Nucleated Red Blood Cell # 0.02 Thou/mm3 (0.00-0.00); Nucleated Red Blood Cell % 1 /100 WBC (0); Platelet Count 253 Thou/mm3 (140-440); RDW Standard Deviation 47.7 fL (35.1-43.9); Red Blood Count 3.79 Miln/mm3 (4.50-5.90); White Blood Count 4.3 Thou/mm3 (3.8-10.6)
[2025-07-31 10:04] LABS: Alanine Aminotransferase 36 U/L (10-49); Albumin, Serum 4.5 gm/dL (3.4-4.8); Alkaline Phosphatase 77 U/L (46-116); Anion Gap 12 (7-16); Aspartate Amino Transferase 22 U/L (0-34); BUN/Creatinine Ratio 14 Ratio (12-20); Bilirubin,Direct 0.1 mg/dL (0.0-0.3); Bilirubin,Total 0.4 mg/dL (0.3-1.2); Blood Urea Nitrogen 14 mg/dL (9-23); Calcium 9.6 mg/dL (8.3-10.6); Carbon Dioxide 24.0 mMol/L (20.0-31.0); Cardiac Risk Estimate 4.8 RATIO (4.0-6.7); Chloride 104 mMol/L (98-107); Cholesterol 191 mg/dL (132-200); Creatinine (Component) 1.0 mg/dL (0.6-1.3); Free T4 (Free Thyroxine) 1.07 ng/dL (0.89-1.76); Glucose 149 mg/dL (74-106); HDL Cholesterol 40 mg/dL (40-60); Osmolality,Calculated 282 (275-295); Potassium 4.2 mMol/L (3.4-5.1); Sodium 140 mMol/L (136-145); Thyroid Stimulating Hormone 6.99 uIU/mL (0.55-4.78); Total Protein 6.4 gm/dL (5.7-8.2); Triglycerides 553 mg/dL (30-150); eGFR > 60 See Note
== END | disposition home or self-care (01) ==
LOC: COPL 07:57
PROVIDERS: PCP Family Medicine; Referring Provider Internal Medicine Cardiovascular Disease; Visit Provider Internal Medicine Cardiovascular Disease
DX: I10 Essential (primary) hypertension (principal); E78.1 Pure hyperglyceridemia
CPT/HCPCS: 36415; 80048; 80061; 80076; 84439; 84443; 85025

== ENCOUNTER 2025-08-16 09:56 | Outpatient (RCR) | payer OTHER, SELFPAY ==
--- NOTE | 2025-08-13 10:48 | CTCFLWUP_ITS ---
Patient: CARLOS STODDARD : 1960 Page 2 of 2 FOLLOW UP NOTE DATE OF SERVICE: 08/13/2025 NAME: CARLOS STODDARD ACCOUNT: [id number] : 1960 AGE: 65 INTERVAL HISTORY: Patient is 65-year-old male who had colon cancer and was treated with FOLFOX plus bevacizumab in adjuvant setting. Patient underwent takedown of the colon and was noted to have progression in the liver. As patient's progression happened less than 6 months from FOLFOX, patient was started on FOLFIRI. Patient is tolerating FOLFIRI better. Have no known side effects at this time. 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 Patient's CEA is now decreased to 16. He has regained most of his weight and is at 194. Will continue current therapy. Patient will get chemo break on September 18 for [place]. 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 MMR proficient Liver lesions CT chest with contrast (03/05/2024) showed multiple small pulmonary nodules suspicious for metastatic disease. Too small to biopsy. 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 s/p sigmoid colectomy and end colostomy (03/01/2024). S/p colonoscopy biopsy on 02/13/2024 DATE OF DIAGNOSIS: 02/12/2022. 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 01/17/2024: Mr. Stoddard went to emergency room because of persistent abdominal pain. A CT scan of the abdomen and pelvis with IV contrast was done01/17/2024: Hemoglobin 13.4, MCV 86, WBC 12.4, ANC 8.9, platelets 483,000. 02/10/2024: CEA 29.4. 02/13/2024: Colonoscopy showed rectosigmoid mass which on biopsy proven as an invasive adenocarcinoma well-differentiated. 02/07/2025 Laboratory, Imaging, and Diagnostic Test Results - Sadaf test: Positive - Colonoscopy: - Polyp found and biopsied: benign - Endoscopy: - Small ulcer found in stomach and biopsied: negative - Last scan: - 29mm lesion in the right liver lobe 04/02/[address] scan IMPRESSION: 28 x 12 mm hypermetabolic activity in the left oropharynx, recommend MRI soft tissue neck follow-up to exclude true lesion in the left oropharynx 13 mm hypermetabolic pulmonary nodule left upper lobe compared to [address] chest October 22, 2024 3 mm pulmonary nodule left lower lobe compared to [address] chest October 22, 2024 39 mm lateral right lobe liver lesion New 12 mm medial right lobe liver lesion New 8 mm posterior right lobe liver lesion 04/02/2025IMPRESSION: Enhancing 18 x 22 mm right lobe liver lesion most consistent with hepatic metastasis, this lesion is amenable to CT-guided percutaneous biopsy as clinically warranted 10 mm left lateral para-aortic lymph node, not visualized on the CT abdomen October 22, 2024 OTHER MEDICAL HISTORY/CONDITIONS: Invasive adenocarcinoma redtosigmoid colon - 02/13/24 HPylori positive - 02/13/24 Esophogeal ulcers Gastritis BPH Alcohol abuse Left knee surgery - 30 yrs ago Tonsillectomy - age 7 FAMILY HISTORY: Sibling: Brother - Kaposi's Sarcoma-dx age 22; Brother- liver - dx 67 SOCIAL HISTORY: 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 Tobacco?Use:?Denies ETOH Use:?Quit 3 months ago - 12pk / daily and 5th whiskey x 40 yrs Drug?Note:?Denies Social?History?Note:?Lives?with? MEDICATIONS: 1. docusate sodium - 100 mg 1 tab As directed 2. hydrocodone-acetaminophen - 5-325 mg 1 tab every 6 hours for 30 Days 3. levothyroxine - 25 mcg 1 tab Daily 4. losartan - 50 mg 1 tab Daily 5. metoprolol succinate - 50 mg 1 tab Daily 6. omeprazole - 40 mg 1 Capsule Daily 7. ondansetron - 16 mg 1 tab Three times a day 8. tamsulosin - 0.4 mg 1 Capsule Daily Medications Last Reconciled by Anjali Ponce MD on 08/13/2025 ALLERGIES: Morphine sulfate REVIEW OF SYSTEMS: A complete 14-point review of systems was performed and is negative except as noted in interval history. PHYSICAL EXAMINATION: VITAL SIGNS: Temperature?99.1, B/P?138/84, Oxygen?Saturation?94% Weight?194?lbs (Change?since?07/26/25:?-0.6?lbs) PAIN: 0 - No pain ECOG Performance Status: 0 - Asymptomatic and fully active GENERAL APPEARANCE: Appears well, in no apparent distress, appropriately interactive. HEENT: Normocephalic, no temporal wasting, normal conjunctiva, no scleral icterus, normal hearing, lips without lesions, neck normal range of motion. CARDIOVASCULAR: Not assessed. PULMONARY: Normal respiratory effort, no respiratory distress or use of accessory muscles, speaking in full sentences, no tachypnea. EXTREMITIES: No pedal edema or cyanosis. SKIN: Normal skin appearance. NEUROLOGIC: Alert and oriented x4. PSHYCHIATRIC: Appropriate affect, mood normal, behavior normal, intact thought and speech. LABORATORY DATA: I have personally reviewed and interpreted each of the patient?s relevant lab tests, abnormal findings are below: Date 07/24/25 07/31/25 ??WHITE?BLOOD?COUNT?(Thou/mm3) ? 4.3 ??RED?BLOOD?COUNT?(Miln/mm3) ? 3.79?L ??HEMOGLOBIN?(gm/dl) ? 12.1?L ??HEMATOCRIT?(%) ? 35.0?L ??PLATELET?COUNT?(Thou/mm3) ? 253 ??NEUTROPHILS?%,?AUTO?(%) ? 35?L ??LYMPH?%,?AUTO?(%) ? 44 ??NEUTROPHILS,?AUTO?(Thou/mm3) ? 1.5?L ??GLUCOSE,RANDOM?(mg/dL) 119?H 149?H ??BLOOD?UREA?NITROGEN?(mg/dL) 9 14 ??CREATININE?(mg/dL) 1.00 1.00 ??SODIUM?(mmol/L) 143 140 ??POTASSIUM?(mmol/L) 3.8 4.2 ??CHLORIDE?(mmol/L) 107 104 ??CrCl?(CandG)?(ml/min) 90.91 ? ??AST/SGOT?(Unit/L) 23 22 ??ALT/SGPT?(Unit/L) 35 36 ??ALKALINE?PHOSPHATASE?(Unit/L) 79 77 ??BILIRUBIN,?TOTAL?(mg/dL) 0.5 0.4 ??PROTEIN?TOTAL?(gm/dl) 6.2 6.4 ??ALBUMIN,?SERUM?(gm/dl) 4.3 4.5 ??GLOBULIN?(gm/dl) 1.9?L ? ??ALBUMIN/GLOBULIN?RATIO 2.3?H ? ??CALCIUM,?SERUM?(mg/dL) 8.9 9.6 ??CALCIUM?SERUM?(CORRECTED)?(mg/dL) 8.9 ? ASSESSMENT/PLAN: #1 stage IV, MMR proficient, sigmoid colon adenocarcinoma with hepatic metastatic disease. MMR proficient. S/p sigmoid colectomy and end colostomy. CT scan showed multiple pulmonary nodules has been stable. Patient have a progression of cancer in the liver Patient is responding well to the chemotherapy as he is in naterra CT DNA level is low also CEA has improved Will continue current therapy Patient follows at [facility] for hepatobiliary as well as transplant surgeon for possible metastatic ectomy of the liver lesions Lung nodules were never biopsied Will repeat scan and if lung nodules are bigger we will biopsy them Continue current therapy Advised to change his diet as patient have very elevated triglyceride Extensively counseled ORDERS: Order # Description [id number] Follow Up 2 Months + CBC with Auto Diff + Comprehensive Metabolic Panel - 12 + CEA [id number] Follow Up Appointment [id number] CBC + Comprehensive Metabolic Panel + CEA [id number] Lab Appointment [id number] Infusion 5 Hours [id number] Infusion 1 Hour [id number] Discontinue CIV Pump [id number] Follow Up Appointment [id number] CBC + Comprehensive Metabolic Panel + CEA [id number] Lab Appointment [id number] Infusion 5 Hours [id number] Infusion 1 Hour [id number] Discontinue CIV Pump [id number] Follow Up Appointment [id number] CBC + Comprehensive Metabolic Panel + CEA [id number] Lab Appointment [id number] Infusion 5 Hours [id number] Infusion 1 Hour [id number] Discontinue CIV Pump [id number] Follow Up Appointment [id number] CBC + Comprehensive Metabolic Panel + CEA [id number] Lab Appointment [id number] Infusion 5 Hours [id number] Infusion 1 Hour [id number] Discontinue CIV Pump [id number] Follow Up Appointment RETURN TO CLINIC: I reviewed the diagnosis, prognosis, and recommended treatment/procedure options with the patient (and/or their legal energy conservation representative), including the potential benefits, risks, side effects and alternative therapies. We also discussed the option of no treatment and the possibility of clinical trial participation, if applicable. All questions were addressed, and they demonstrated understanding. They provided informed consent to proceed with the proposed plan of care. BILLING AND COMPLIANCE: I reviewed external records from providers outside my specialty as summarized above. I spent a total of 50 minutes on this patient?s care on the day of their visit excluding time spent related to any billed procedures. This time includes time spent with the patient as well as time spent documenting in the medical record, reviewing patients records and tests, obtaining history, placing orders, communicating with other healthcare professionals, counseling the patient, family or caregiver, and/or care coordination for the diagnoses above. Electronically Signed by: Von Boss MD T: 10:46 AM CC: PCP: Jaswinder Barker Referring: Jaswinder Barker This document was completed utilizing speech recognition software. Grammatical errors, random word insertions, pronoun errors, and incomplete sentences are an occasional consequence of this system due to software limitations, ambient noise, and hardware issues. Any formal questions or concerns about the content, text or information contained within the body of this dictation should be directly addressed to the provider for clarification.
[2025-08-14 08:17] LABS: Collection Type, Urine Clean Catch; Squamous Epithelial Cell,Urine 0 /hpf (0-5)
[2025-08-14 08:20] LABS: Basophils # (Auto) 0.0 Thou/mm3 (0.0-0.2); Basophils % (Auto) 0 % (0-2.5); Eosinophils # (Auto) 0.2 Thou/mm3 (0.0-0.5); Eosinophils % (Auto) 4 % (0-10); Hematocrit 34.6 % (41.0-53.0); Hemoglobin 11.9 g/dL (13.5-16.0); Immature Granulocytes Auto 0.06 Thou/mm3 (0.00-0.00); Lymphocytes # (Auto) 1.6 Thou/mm3 (1.0-4.8); Lymphocytes % (Auto) 36 % (10-50); Mean Corpuscular HGB Conc 34.4 g/dl (31.0-37.0); Mean Corpuscular Hemoglobin 32.0 pg (25.0-35.0); Mean Corpuscular Volume 93 fL (80-100); Monocytes # (Auto) 0.8 Thou/mm3 (0.0-0.8); Monocytes % (Auto) 17 % (0-12); Neutrophils # (Auto) 1.8 Thou/mm3 (1.8-7.7); Neutrophils % (Auto) 41 % (37-80); Nucleated Red Blood Cell # 0.00 Thou/mm3 (0.00-0.00); Nucleated Red Blood Cell % 0 /100 WBC (0); Platelet Count 255 Thou/mm3 (140-440); RDW Standard Deviation 47.5 fL (35.1-43.9); Red Blood Count 3.72 Miln/mm3 (4.50-5.90); White Blood Count 4.5 Thou/mm3 (3.8-10.6)
[2025-08-14 08:27] LABS: Bacteria,Urine Rare; Bilirubin,Urine Negative (Negative); Blood,Urine Negative (Negative); Clarity,Urine Clear (Clear/Hazy); Color,Urine Lt-Yellow (Lt Yel-Yel); Culture Indicated,Urine Not Indicated; Glucose, Urine Negative (Negative); Ketones,Urine Negative (Negative); Leukocyte Esterase,Urine Negative (Negative); Nitrite,Urine Negative (Negative); PH,Urine 5.5 (5.0-7.0); Protein,Urine Negative (Neg - Trace); RBC,Urine < 1 /hpf (0-3); Specific Gravity,Urine 1.023 (1.001-1.035); Urobilinogen,Urine Negative mg/dL (0.0-1.0); WBC,Urine 1 /hpf (0-5)
[2025-08-14 08:44] LABS: Alanine Aminotransferase 22 U/L (10-49); Albumin, Serum 4.5 gm/dL (3.4-4.8); Albumin/Globulin Ratio 2.3 (1.2-2.2); Alkaline Phosphatase 64 U/L (46-116); Anion Gap 11 (7-16); Aspartate Amino Transferase 21 U/L (0-34); BUN/Creatinine Ratio 10 Ratio (12-20); Bilirubin,Total 0.5 mg/dL (0.3-1.2); Blood Urea Nitrogen 10 mg/dL (9-23); Calcium 9.0 mg/dL (8.3-10.6); Calcium (Corrected) 9.0 mg/dL (8.5-10.1); Carbon Dioxide 25.3 mMol/L (20.0-31.0); Chloride 107 mMol/L (98-107); Creatinine (Component) 1.0 mg/dL (0.6-1.3); Globulin 2.0 gm/dL (2.3-3.5); Glucose 116 mg/dL (74-106); Osmolality,Calculated 284 (275-295); Potassium 4.1 mMol/L (3.4-5.1); Sodium 143 mMol/L (136-145); Total Protein 6.5 gm/dL (5.7-8.2); eGFR > 60 See Note
[2025-08-14 08:46] LABS: Carcinoembryonic Antigen 11.4 ng/mL (0.0-5.0)
== END 2025-08-25 23:59 | disposition home or self-care (01) ==
LOC: SCTC 09:56
PROVIDERS: PCP Internal Medicine; Referring Provider Internal Medicine; Visit Provider Internal Medicine Hematology & Oncology
DX: Z51.11 Encounter for antineoplastic chemotherapy (principal); C18.7 Malignant neoplasm of sigmoid colon; C78.7 Secondary malignant neoplasm of liver and intrahepatic bile duct; Z90.49 Acquired absence of other specified parts of digestive tract; Z93.3 Colostomy status; R91.8 Other nonspecific abnormal finding of lung field
CPT/HCPCS: 80053; 81001; 82378; 85025; 96367; 96368; 96375; 96413; 96415; 96416; 96417; 99212; A4216; J0461; J0640; J1100; J1434; J1642; J2405; J3490; J7040; J7050; J7060; J9190; J9206; Q5126; A9270; G0463

== ENCOUNTER 2025-09-06 08:49 | Outpatient (RCR) | payer OTHER, SELFPAY ==
[2025-09-02 08:06] LABS: Collection Type, Urine Voided
[2025-09-02 08:23] LABS: Basophils # (Auto) 0.0 Thou/mm3 (0.0-0.2); Basophils % (Auto) 1 % (0-2.5); Eosinophils # (Auto) 0.3 Thou/mm3 (0.0-0.5); Eosinophils % (Auto) 7 % (0-10); Hematocrit 36.2 % (41.0-53.0); Hemoglobin 12.1 g/dL (13.5-16.0); Immature Granulocytes Auto 0.02 Thou/mm3 (0.00-0.00); Lymphocytes # (Auto) 1.8 Thou/mm3 (1.0-4.8); Lymphocytes % (Auto) 47 % (10-50); Mean Corpuscular HGB Conc 33.4 g/dl (31.0-37.0); Mean Corpuscular Hemoglobin 31.2 pg (25.0-35.0); Mean Corpuscular Volume 93 fL (80-100); Monocytes # (Auto) 0.7 Thou/mm3 (0.0-0.8); Monocytes % (Auto) 17 % (0-12); Neutrophils # (Auto) 1.1 Thou/mm3 (1.8-7.7); Neutrophils % (Auto) 29 % (37-80); Nucleated Red Blood Cell # 0.00 Thou/mm3 (0.00-0.00); Nucleated Red Blood Cell % 0 /100 WBC (0); Platelet Count 205 Thou/mm3 (140-440); RDW Standard Deviation 46.4 fL (35.1-43.9); Red Blood Count 3.88 Miln/mm3 (4.50-5.90); White Blood Count 3.8 Thou/mm3 (3.8-10.6)
[2025-09-02 08:30] LABS: Alanine Aminotransferase 23 U/L (10-49); Albumin, Serum 4.3 gm/dL (3.4-4.8); Albumin/Globulin Ratio 1.7 (1.2-2.2); Alkaline Phosphatase 66 U/L (46-116); Anion Gap 12 (7-16); Aspartate Amino Transferase 22 U/L (0-34); BUN/Creatinine Ratio 13 Ratio (12-20); Bilirubin,Total 0.6 mg/dL (0.3-1.2); Blood Urea Nitrogen 13 mg/dL (9-23); Calcium 9.3 mg/dL (8.3-10.6); Calcium (Corrected) 9.3 mg/dL (8.5-10.1); Carbon Dioxide 22.4 mMol/L (20.0-31.0); Chloride 108 mMol/L (98-107); Creatinine (Component) 1.0 mg/dL (0.6-1.3); Globulin 2.5 gm/dL (2.3-3.5); Glucose 136 mg/dL (74-106); Osmolality,Calculated 285 (275-295); Potassium 3.9 mMol/L (3.4-5.1); Sodium 142 mMol/L (136-145); Total Protein 6.8 gm/dL (5.7-8.2); eGFR > 60 See Note
[2025-09-02 08:33] LABS: Carcinoembryonic Antigen 17.0 ng/mL (0.0-5.0)
[2025-09-02 08:44] LABS: Bilirubin,Urine Negative (Negative); Blood,Urine Negative (Negative); Color,Urine Yellow (Lt Yel-Yel); Glucose, Urine Negative (Negative); Ketones,Urine Negative (Negative); Leukocyte Esterase,Urine Negative (Negative); Nitrite,Urine Negative (Negative); PH,Urine 5.5 (5.0-7.0); Protein,Urine Negative (Neg - Trace); RBC,Urine < 1 /hpf (0-3); Specific Gravity,Urine 1.022 (1.001-1.035); Squamous Epithelial Cell,Urine < 1 /hpf (0-5); Urobilinogen,Urine Negative mg/dL (0.0-1.0); WBC,Urine 1 /hpf (0-5)
[2025-09-02 08:49] LABS: Clarity,Urine Hazy (Clear/Hazy)
== END 2025-09-25 23:59 | disposition home or self-care (01) ==
LOC: SCTC 08:49
PROVIDERS: PCP Internal Medicine; Referring Provider Internal Medicine; Visit Provider Internal Medicine Hematology & Oncology
DX: Z51.11 Encounter for antineoplastic chemotherapy (principal); C19 Malignant neoplasm of rectosigmoid junction; C78.7 Secondary malignant neoplasm of liver and intrahepatic bile duct; R91.8 Other nonspecific abnormal finding of lung field
CPT/HCPCS: 80053; 81001; 82378; 85025; 96360; 96367; 96368; 96372; 96375; 96411; 96413; 96415; 96416; 96417; A4216; J0461; J0640; J1100; J1434; J1642; J2405; J2997; J3490; J7030; J7040; J7050; J7060; J9190; J9206; Q5101; Q5126; A9270